=== PATIENT | female | born 1955 | race Caucasian/White ===

== ENCOUNTER 2017-03-20 09:30 | Inpatient (IN) | payer MEDICAID, OTHER ==
[~2017-03-20] VITALS: Ht 165.1 cm; Wt 158.0 kg
[2017-03-20 09:33] VITALS: Ht 165.1 cm; Wt 158.0 kg
--- NOTE | 2017-03-20 11:13 | RADRPT ---
PROCEDURE: XR Chest. CLINICAL INDICATION: Abdominal pain. TECHNIQUE: Single frontal view of the chest was obtained. COMPARISON: None FINDINGS: The soft tissues are generous. There are degenerative osteophytes in the thoracic spine. The heart is enlarged. The cardiomediastinal silhouette and hilar structures are normal. The pulmonary vascu lature is normal. There are vascular calcifications in the aortic arch. The lungs are clear. The c ostophrenic angles are normal. IMPRESSION: 1. Cardiomegaly with left ventricular enlargement. 2. Atherosclerosis of the aortic arch. 3. Spondylosis of the thoracic spine. RPTAT:AAJJ Physician Daniel Date Time Electronically viewed and signed by Physician Daniel on 03/20/2017 11:13 YAMILETH/
[2017-03-20 11:17] LABS: ADD UMIC YES; UR ASCORBIC ACID NEGATIVE (NEGATIVE); UR BILIRUBIN (Dip) NEGATIVE (NEGATIVE); UR BLOOD (Dip) 1+ mg/dL (NEGATIVE); UR CLARITY SLIGHTLY CLOUDY (CLEAR); UR COLOR YELLOW (YELLOW); UR GLUCOSE (Dip) NEGATIVE (NEGATIVE); UR KETONES (Dip) NEGATIVE (NEGATIVE); UR LEUKOCYTE ESTERASE (Dip) NEGATIVE Leu/ul (NEGATIVE); UR NITRITE (Dip) NEGATIVE (NEGATIVE); UR RBC 1 /HPF (0-5); UR SPECIFIC GRAVITY (Dip) 1.013 (1.003-1.030); UR SQUAMOUS EPITHELIAL CELL FEW /HPF (FEW); UR TOTAL PROTEIN (Dip) 1+ mg/dl (NEGATIVE); UR UROBILINOGEN (Dip) NEGATIVE (NEGATIVE)
[2017-03-20 11:41] LABS: ADD SCAN DIFF NO
[2017-03-20 11:43] LABS: ABNORMAL IP MESSAGE 1; HEMATOCRIT 26.1 % (37.0-47.0); HEMOGLOBIN 7.5 g/dl (12.0-16.0); MEAN CORPUSCULAR HEMOGLOBIN 23.6 pg (29.0-33.0); MEAN CORPUSCULAR HGB CONC 28.7 g/dl (32.0-37.0); MEAN CORPUSCULAR VOLUME 82.1 fl (82.0-101.0); PLATELET COUNT 109 10^3/UL (140-415); RED BLOOD COUNT 3.18 10^6/ul (4.20-5.40); RED CELL DISTRIBUTION WIDTH 21.1 % (11.5-14.5); WHITE BLOOD COUNT 2.6 10^3/ul (4.8-10.8)
[2017-03-20 12:09] LABS: ALBUMIN 3.1 g/dl (3.3-4.9); ALBUMIN/GLOBULIN RATIO 0.7; BILIRUBIN,INDIRECT 0.1 mg/dl (0-1.1); BILIRUBIN,TOTAL 0.1 mg/dl (0.2-1.3); CALCIUM 8.7 mg/dl (8.4-10.2); CREATININE 1.27 mg/dl (0.44-1.00); POTASSIUM 3.5 mmol/L (3.5-5.1); TOTAL PROTEIN 7.5 g/dl (6.1-8.1)
[2017-03-20 14:41] LABS: LYMPHOCYTES # 0.5 10^3/ul (0.8-2.9); MONOCYTE # 0.3 10^3/ul (0.3-0.9); NEUTROPHIL # 1.6 10^3/ul (1.6-7.5)
[2017-03-20] MEDS ORDERED: SOD CHLORIDE 0.9% 1,000 ML IV ONE (14:45)
[2017-03-20] MEDS ORDERED: ACETAMINOPHEN 650 MG SUPP PR PRN (15:00)
[2017-03-20] MEDS ORDERED: morphine 2 MG INJ IV PRN (15:00)
[2017-03-20] MEDS ORDERED: BISACODYL 10 MG SUPP PR PRN (15:00)
[2017-03-20] MEDS ORDERED: HYDROCODONE/APAP (5/325) TAB PO PRN ×2 (15:00)
[2017-03-20] MEDS ORDERED: ONDANSETRON 4 MG INJ IV PRN (15:00)
[2017-03-20] MEDS ORDERED: MAGNESIUM HYDROXIDE 30ML CUP PO PRN (15:00)
[2017-03-20] MEDS ORDERED: ACETAMINOPHEN 325 MG TAB PO PRN (15:00)
[2017-03-20] MEDS ORDERED: NACL 0.9% 3 ML SYG IV SCH (15:00)
[2017-03-20] MEDS ORDERED: DOCUSATE SODIUM 100 MG CAP PO PRN (15:00)
--- NOTE | 2017-03-20 15:38 | RADRPT ---
PROCEDURE: CT scan of the abdomen and pelvis without IV contrast. CLINICAL INDICATION: Fever, high blood pressure and generalized abdominal pain. TECHNIQUE: Thin section axial, coronal and sagittal images were performed through the abdomen and pelvis without contrast. Radiation Dose: CTDI: 28.9 and DLP: 1900 One or more of the following dose reduction techniques were used: - Automated exposure control. - Adjustment of the mA and/or kV according to patient size. Use of iterative reconstruction technique. COMPARISON: Chest x-ray 10/03/2016 06:18 a.m. FINDINGS: Soft tissues: The soft tissues are generous consistent with obesity.. Lungs and pleural spaces: The lungs are clear. No pleural effusion or pulmonary nodule is identifie d. Heart: Heart is enlarged. No pericardial effusion is identified. The liver, common bile duct and gallbladder: The liver has a nodular contour. The liver measures 15 .8 cm AP. The gallbladder and gallbladder wall are normal. Gastrointestinal: There is no evidence of a hiatal hernia. The stomach is unremarkable. The small bowel loops have a normal caliber. There is diastasis rectus. There is a midline umbilical hernia which contains only fat. The neck of the hernia measures 2.2 cm sagittal. Hernia measures up to 4 .6 cm in maximal length. No inguinal hernia is identified. There are diverticula in the descending colon. There are diverticula in the sigmoid colon. There is no convincing evidence of diverticulit is. There is no convincing evidence of appendicitis. Pancreas: Normal. The extrahepatic common bile duct is normal. Kidneys, bladder and adrenal glands : The adrenal glands are normal. There is no evidence of a demetrius d mass or hydronephrosis involving either kidney. No obstructing ureterolith, nephrolith or bladder stone is identified. There are phleboliths adjacent to the bladder. The urinary bladder is normal . Spleen: The spleen measures 16 cm AP which is enlarged. Lymph nodes: No enlarged inguinal, pelvic sidewall, retroperitoneal, mesenteric or periportal lymph nodes are identified. Reproductive system and pelvis : The uterus and ovaries are not visualized. Bony elements: There are degenerative osteophytes in the thoracic and lumbar spine. There is disk s pace narrowing and vacuum disk phenomenon at L3-4, L4-5 and L5-S1. There is no evidence of spondylo lysis or spondylolisthesis. The neural canal and nerve root foramina are well maintained except for moderate narrowing of the nerve root canals at L5-S1 due to dorsal spondylosis. Vasculature: There are vascular calcifications in the distal common iliac arteries. IMPRESSION: 1. Obesity with rectus diastasis and associated midline umbilical hernia containing only fat. This hernia measures up to 4.6 cm in long axis with the neck of the hernia measuring 2.2 cm sagittal. 2. Diverticulosis of the descending and sigmoid colon. No convincing evidence of diverticulitis or appendicitis. 3. Cardiomegaly. 4. Mild hepatomegaly. 6. Splenomegaly. The spleen measures 15.8 cm AP. 7. Status post hysterectomy and bilateral salpingo-oophorectomy. 8. Osteoarthritis of the thoracic and lumbosacral spine. RPTAT:AAJJ Physician Daniel Date Time Electronically viewed and signed by Physician Daniel on 03/20/2017 15:38 /
--- NOTE | 2017-03-20 15:52 | ERA ---
ER Documentation Chief Complaint Date/Time DATE: 03/20/17 TIME: 15:47 Chief Complaint FEVER AND HEADACHE X 1 WEEK HPI This 61-year-old female presents with fever for last week. She took Tylenol last night. She has no fever triage. She also has complaints of a bitemporal headache fatigue and nausea without vomiting, abdominal pain, diarrhea, urinary complaints, cough, sore throat. She has a history of hypertension. ROS All systems reviewed and are negative except as per history of present illness. Allergies Allergies: Coded Allergies: No Known Allergy (Unverified , 03/20/17) PMhx/Soc Hx Cardiac Disorders: Yes (htn; high cholesterol) Hx Alcohol Use: No Hx Substance Use: No Hx Tobacco Use: No Physical Exam Vitals Vital Signs Date Time Temp Pulse Resp B/P Pulse Ox O2 Delivery O2 Flow Rate FiO2 03/20/17 09:33 98.6 78 18 127/60 97 Physical Exam Const: [] Alert, morbidly obese, no apparent distress. Head: Atraumatic Eyes: Normal Conjunctiva ENT: Normal External Ears, Nose and Mouth. Neck: Full range of motion..~ No meningismus. Resp: Clear to auscultation bilaterally Cardio: Regular rate and rhythm, no murmurs Abd: Soft, non tender, non distended. Normal bowel sounds Skin: No petechiae or rashes Back: No midline or flank tenderness Ext: No cyanosis, appropriate. Patient is changes of venous stasis chronic appearing edema of the bilateral lower extremities. No calf swelling or Homans sign per Neur: Awake and alert Psych: Normal Mood and Affect Result Diagram: 03/20/17 1130 03/20/17 1130 Results 24 hrs Laboratory Tests Test 03/20/17 10:50 03/20/17 11:30 Urine Color YELLOW Urine Clarity SLIGHTLY CLOUDY Urine pH 5.0 Urine Specific [place] 1.013 Urine Ketones NEGATIVEmg/dL Urine Nitrite NEGATIVEmg/dL Urine Bilirubin NEGATIVEmg/dL Urine Urobilinogen NEGATIVEmg/dL Urine Leukocyte Esterase NEGATIVELeu/ul Urine Microscopic RBC 1/HPF Urine Microscopic WBC 7/HPF Urine Squamous Epithelial Cells FEW/HPF Urine Hemoglobin 1+mg/dL Urine Glucose NEGATIVEmg/dL Urine Total Protein 1+mg/dl White Blood Count 2.610^3/ul Red Blood Count 3.1810^6/ul Hemoglobin 7.5g/dl Hematocrit 26.1% Mean Corpuscular Volume 82.1fl Mean Corpuscular Hemoglobin 23.6pg Mean Corpuscular Hemoglobin Concent 28.7g/dl Red Cell Distribution Width 21.1% Platelet Count 46076^3/UL Mean Platelet Volume 12.0fl Neutrophils % 63.0% Band Neutrophils % 3.0% Lymphocytes % 20.0% Monocytes % 13.0% Eosinophils % 1.0% Basophils % % Neutrophils # 1.610^3/ul Lymphocytes # 0.510^3/ul Monocytes # 0.310^3/ul Eosinophils # 0.010^3/ul Basophils # 10^3/ul Nucleated Red Blood Cells # 10^3/ul Sodium Level 142mmol/L Potassium Level 3.5mmol/L Chloride Level 102mmol/L Carbon Dioxide Level 23mmol/L Anion Gap 21 Blood Urea Nitrogen 36mg/dl Creatinine 1.27mg/dl Glucose Level 93mg/dl Calcium Level 8.7mg/dl Total Bilirubin 0.1mg/dl Direct Bilirubin 0.00mg/dl Indirect Bilirubin 0.1mg/dl Aspartate Amino Transf (AST/SGOT) 74IU/L Alanine Aminotransferase (ALT/SGPT) 51IU/L Alkaline Phosphatase 175IU/L Total Protein 7.5g/dl Albumin 3.1g/dl Globulin 4.40g/dl Albumin/Globulin Ratio 0.70 Lipase 302U/L Current Medications Medications (Trade) Dose Ordered Sig/Neha Route PRN Reason Start Time Stop Time Status Last Admin Dose Admin IV Flush (NS 3 ml) 3 ml PER PROTOCOL IV 03/20/17 15:00 Ondansetron HCl (Zofran Inj) 4 mg Q6H PRN IV NAUSEA AND/OR VOMITING 03/20/17 15:00 Acetaminophen (Tylenol Tab) 650 mg Q6H PRN PO PAIN LEVEL 1-3 OR FEVER 03/20/17 15:00 Acetaminophen (Tylenol Supp) 650 mg Q6H PRN [place] PAIN LEVEL 1-3 OR FEVER 03/20/17 15:00 Acetaminophen/ Hydrocodone Bitart ([place] (5/325)) 1 tab Q6H PRN PO MODERATE PAIN LEVEL 4-6 03/20/17 15:00 Acetaminophen/ Hydrocodone Bitart ([place] (5/325)) 2 tab Q6H PRN PO SEVERE PAIN LEVEL 7-10 03/20/17 15:00 Morphine Sulfate (morphine) 2 mg Q4H PRN IV SEVERE PAIN LEVEL 7-10 03/20/17 15:00 Docusate Sodium (Colace) 100 mg Q12H PRN PO CONSTIPATION 03/20/17 15:00 Magnesium Hydroxide (Milk Of Mag) 30 ml DAILY PRN PO CONSTIPATION 03/20/17 15:00 Bisacodyl (Dulcolax Supp) 10 mg DAILY PRN [place] CONSTIPATION 03/20/17 15:00 Pantoprazole 40 mg 40 mg DAILY@06 IV 03/21/17 06:00 Sodium Chloride (NS) 1,000 ml @ 0 mls/hr Q0M ONCE IV 03/20/17 14:45 03/20/17 14:46 DC 03/20/17 15:00 Procedures/MDM Patient presents with febrile illness at home, fatigue, nausea headache of uncertain etiology. CBC shows pancytopenia with a WBC of 2.6, hemoglobin 7.5 and platelets of 105. CMP shows elevated BUN and creatinine. Lipase slightly elevated. Urine shows no 7 WBCs few RBCs but no leukocyte Estrace, nitrites, glucose. Chest X-ray 1V Interpreted by me: Soft Tissue: No acute abnormalities Bones: No acute abnormalities Mediastinum/Cardiac Silhouette/Lungs: [No acute abnormalities]. Impression have normal 1 view chest x-ray CT abdomen and pelvis shows IMPRESSION: 1. Obesity with rectus diastasis and associated midline umbilical hernia containing only fat. This hernia measures up to 4.6 cm in long axis with the neck of the hernia measuring 2.2 cm sagittal. 2. Diverticulosis of the descending and sigmoid colon. No convincing evidence of diverticulitis or appendicitis. 3. Cardiomegaly. 4. Mild hepatomegaly. 6. Splenomegaly. The spleen measures 15.8 cm AP. 7. Status post hysterectomy and bilateral salpingo-oophorectomy. 8. Osteoarthritis of the thoracic and lumbosacral spine. Patient presents with febrile illness without active fever and signs of pancytopenia of uncertain etiology. There is no current signs or symptoms of sepsis, chest pain, shortness of breath, acute abdomen. Differential includes TTP, neoplasm, blood dyscrasia, hemolysis. There is no signs or symptoms to suggest pulmonary embolism or DVT. Patient will be admitted for further evaluation and treatment. Departure Diagnosis: Primary Impression: Acute renal failure Qualified Code: N17.9 - Acute renal failure, unspecified acute renal failure type Additional Impression: Pancytopenia Condition: Stable TERESA VALENCIA MD Mar 20, 2017 15:52
--- NOTE | 2017-03-20 15:55 | HP ---
Date/Time of Note Date/Time of Note DATE: 03/20/17 TIME: 15:48 Assessment/Plan VTE Prophylaxis VTE Prophylaxis Intervention: SCD's Assessment/Plan Chief Complaint/Hosp Course Impression and plan 1. Reported fevers and generalized weakness. Patient noted to be pancytopenic. Will monitor CBC and transfuse blood products as needed. Will get credit checker to follow. Follow-up on lloyd cultures. 2. Pancytopenia. Etiology unknown at this time. Will get oncologist follow. 3. Reported essential hypertension.Remained stable at present. Will provide with antihypertensives as needed. 4. Acute kidney injury. Will provide with IV hydration for now. Will get notereader pending clinical course. 5. Morbid obesity. Weight reduction was advised. Admission process 40 minutes Discussed plan of care with Problems: HPI/ROS Admit Date/Time Admit Date/Time Medical/surgical history 1. Hypertension 2. Reported bladder surgery 3. Hysterectomy 4. Morbid obesity Hx of Present Illness This is a 61-year-old female with only reported past medical history of hypertension who came to [facility] due to reports of subjective fevers as well as generalized weakness that she reports started on Thursday, March 15, 2017. She does not know how high her fever was but reports feeling weak at that time. She also had some reported diarrhea which she did report resolved on February. She reported that she only taking Tylenol for fevers and slowly got better but today she reported she got worse. She also had some reported shortness of breath on exertion as well as some dysuria. She subsequently went to [facility] for further evaluation. She did have a chest x-ray that did show cardiomegaly with left ventricular enlargement. She also had an abdominal pelvic CT scan that did show her to have obesity with rectus diastases and associated midline umbilical hernia containing only fat and hernia measuring up to 4.6 cm in the long axis of the neck of the hernia measuring 2.2 cm sagittal. There is also seen diverticulosis without evidence of diverticulitis. She was noted on blood work to be pancytopenic with white blood cells was 2.6 and hemoglobin of 7.5 and hematocrit 26.1. She denies any history of anemia or leukemia. Additionally she was noted to have acute renal injury with creatinine of 1.27 and BUN of 36. Lipase is also seen slightly elevated at 302. She remained afebrile on visit. We will evaluate her for the aformentiond issues ROS 12 point review of systems obtained and entirely negative except that mentioned in the history present illness Exam/Review of Systems Vital Signs Vitals Vital Signs Date Time Temp Pulse Resp B/P Pulse Ox O2 Delivery O2 Flow Rate FiO2 03/20/17 09:33 98.6 78 18 127/60 97 Exam Constitutional: alert, oriented, other (Morbidly obese) Psych: nl mood/affect Neck: No jvd Respiratory: clear to auscultation Cardiovascular: nl pulses, regular rate and rhythm Gastrointestinal: soft, tender (Minimally on left upper abdominal quadrant) Musculoskeletal: No swelling Neurological: RAILROAD YARD WORKER II-XII intact, nl mental status, nl speech Labs Result Diagram: 03/20/17 1130 03/20/17 1130 Medications Medications Current Medications Ondansetron HCl (Zofran Inj) 4 mg Q6H PRN IV NAUSEA AND/OR VOMITING; Start at 15:00 Acetaminophen (Tylenol Tab) 650 mg Q6H PRN PO PAIN LEVEL 1-3 OR FEVER; Start at 15:00 Acetaminophen (Tylenol Supp) 650 mg Q6H PRN [place] PAIN LEVEL 1-3 OR FEVER; Start 03/20/17 at 15:00 Acetaminophen/ Hydrocodone Bitart ([place] (5/325)) 1 tab Q6H PRN PO MODERATE PAIN LEVEL 4-6; Start 03/20/17 at 15:00 Acetaminophen/ Hydrocodone Bitart ([place] (5/325)) 2 tab Q6H PRN PO SEVERE PAIN LEVEL 7-10; Start 03/20/17 at 15:00 Morphine Sulfate (morphine) 2 mg Q4H PRN IV SEVERE PAIN LEVEL 7-10; Start 03/20 at 15:00 Docusate Sodium (Colace) 100 mg Q12H PRN PO CONSTIPATION; Start 03/20/17 at 15: 00 Magnesium Hydroxide (Milk Of Mag) 30 ml DAILY PRN PO CONSTIPATION; Start at 15:00 Bisacodyl (Dulcolax Supp) 10 mg DAILY PRN [place] CONSTIPATION; Start 03/20/17 at 15 :00 Pantoprazole (Protonix Iv) 40 mg DAILY@06 IV ; Start 03/21/17 at 06:00 DORI MENENDEZ Mar 20, 2017 15:55
[2017-03-20 15:57] VITALS: TEMP 97.7
[2017-03-20 16:22] LABS: RETICULOCYTE COUNT % 2.5 % (0.5-1.5)
[2017-03-20 16:26] LABS: INR 1.06; PROTIME 13.8 Sec (12.2-14.2); PT RATIO 1.1
[2017-03-20 16:47] LABS: PARTIAL THROMBOPLASTIN TIME 41.6 Sec (25.0-35.0)
[2017-03-20 17:05] VITALS: BP 125/81; PULSE 65; RESP 18
--- NOTE | 2017-03-20 17:58 | EN ---
Date/Time of Note Date/Time of Note DATE: 03/20/17 TIME: 17:46 Event Note Medicine Medicine Event Note Complete hematology consultation dictated. . Pt is a 61 y/o female admitted with c/o weakness and fatigue. Possible fevers but has not taken temp and not febrile in hospital. Found to be pancytopenic. Pt also has mildly abn LFT's and CT scan demonstrated a nodular liver which is sl enlarged and splenomegaly (16 cm). Pt also has mild hyperglobulinemia and prolonged PTT but nl PT. Feel pt's pancytopenia is due to a combination of 2 problems. Feel that pt anemia is due to iron deficiency. May be on basis of portal hypertension and variceal bleeding or gastropathy. Leukopenia and thrombocytopenia are likely due to splenic sequestration. Doubt myeloproliferative disorder as cause of splenomegaly. Pt has elevated globulin but doubt a immunoproliferative process but may have a collagen vascular disorder as cause of prolonged PTT with a possible lupus anticoagulant. Have requested iron studies, ferritin, B12 and folate, SPEP, IEP, QIG's, Hepatitis serologies, BRIAN, ELIU-2, LDH, uric acid and 50/50 PTT. COSNTANCE MARTINEZ MD Mar 20, 2017 17:57
--- NOTE | 2017-03-20 18:25 | CONS ---
Date/Time of Note Date/Time of Note DATE: 03/20/17 TIME: 18:17 Assessment/Plan Assessment/Plan Additional Assessment/Plan 61 yo Female with 1) Fever and Generalized Weakness 2) Pancytopenia 3) Abnormal UA with ? NATHALIA vs CKD 4) Chronic HTN 5) Obesity At this time it is unclear if we have NATHALIA vs CKD, Unlikely ATN As patient had hx of Diarrhea please consider Pre-Renal state and would advise IVFs at this UA reviewed, F/U Cultures Dr Fox has seen patient and has ordered Protein electropheresis. MM F/u results, appreciate Hem/Onc consultation Please hold ARB Losartan and HCTZ at this time. Thank you for the opportunity to participate in the care of Ms Morrow Dr Miller is rounding over weekend and I will sign out to him. Consultation Date/Type/Reason Date of Consultation: Mar 20, 2017 Type of Consultation: Renal Reason for Consultation NATHALIA Referring Provider: DORI MENENDEZ Hx of Present Illness 61-year-old female with chronic history of hypertension greater than 10 years who presented to [facility] [place] with oriana as well as generalized weakness that started on Thursday, March 15, 2017. She reported diarrhea which she did report resolved on , March 19, 2017. She also had some reported shortness of breath on exertion as well as some dysuria. She was noted on blood work to be pancytopenia with white blood cells was 2.6 and hemoglobin of 7.5 and hematocrit 26.1. She denies any history of anemia or leukemia. Additionally she was noted to have acute renal injury with creatinine of 1.27 and BUN of 36 and denies history of NATHALIA or CKD in past. Nephrology consulted for NATHALIA vs CKD. Constitutional: No requiring O2 Cardiovascular: No chest pain Genitourinary: dysuria, No hematuria Psychological: nl mood/affect Past Medical History Medical History: hypertension Past Surgical History Past Surgical Hx: other (SHANNON BSO) Family History Significant Family History: no pertinent family hx Social History Alcohol Use: none Smoking Status: Never smoker Drug Use: none Exam/Review of Systems Vital Signs Vitals Vital Signs Date Time Temp Pulse Resp B/P Pulse Ox O2 Delivery O2 Flow Rate FiO2 03/20/17 17:05 97.6 65 18 125/81 100 Room Air Exam Constitutional: alert, obese, oriented Psych: No anxiety Head: atraumatic, normocephalic Eyes: EOMI, PERRL, nl conjunctiva, No icteric ENMT: mucosa pink and moist, nl lips & teeth Neck: supple, No jvd Respiratory: clear to auscultation, No diminished breath sounds, No labored breathing Cardiovascular: regular rate and rhythm, No edema Gastrointestinal: non-tender, soft, No rebound or guarding, No tender Extremities: No pitting pedal edema 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, nl mental status, No confused, No focal weakness, No lethargic Skin: nl turgor, No diaphoresis, No rash or lesions Results Result Diagram: 03/20/17 1130 03/20/17 1130 Results 24 hrs Laboratory Tests Test 03/20/17 10:50 03/20/17 11:30 Urine Color YELLOW Urine Clarity SLIGHTLY CLOUDY A Urine pH 5.0 Urine Specific [place] 1.013 Urine Ketones NEGATIVE Urine Nitrite NEGATIVE Urine Bilirubin NEGATIVE Urine Urobilinogen NEGATIVE Urine Leukocyte Esterase NEGATIVE Urine Microscopic RBC 1 Urine Microscopic WBC 7 H Urine Squamous Epithelial Cells FEW Urine Hemoglobin 1+ H Urine Glucose NEGATIVE Urine Total Protein 1+ H White Blood Count 2.6 L Red Blood Count 3.18 L Hemoglobin 7.5 L Hematocrit 26.1 L Mean Corpuscular Volume 82.1 Mean Corpuscular Hemoglobin 23.6 L Mean Corpuscular Hemoglobin Concent 28.7 L Red Cell Distribution Width 21.1 H Platelet Count 109 L Mean Platelet Volume 12.0 H Neutrophils % 63.0 Band Neutrophils % 3.0 Lymphocytes % 20.0 Monocytes % 13.0 H Eosinophils % 1.0 Basophils % Neutrophils # 1.6 Lymphocytes # 0.5 L Monocytes # 0.3 Eosinophils # 0.0 Basophils # Nucleated Red Blood Cells # Absolute Reticulocyte Count 0.080 Percent Reticulocyte Count 2.5 H Prothrombin Time 13.8 Prothrombin Time Ratio 1.1 INR International Normalized Ratio 1.06 Activated Partial Thromboplast Time 41.6 H Sodium Level 142 Potassium Level 3.5 Chloride Level 102 Carbon Dioxide Level 23 Anion Gap 21 H Blood Urea Nitrogen 36 H Creatinine 1.27 H Glucose Level 93 Calcium Level 8.7 Total Bilirubin 0.1 L Direct Bilirubin 0.00 Indirect Bilirubin 0.1 Aspartate Amino Transf (AST/SGOT) 74 H Alanine Aminotransferase (ALT/SGPT) 51 Alkaline Phosphatase 175 H Total Protein 7.5 Albumin 3.1 L Globulin 4.40 H Albumin/Globulin Ratio 0.70 Lipase 302 H Medications Medications Current Medications Ondansetron HCl (Zofran Inj) 4 mg Q6H PRN IV NAUSEA AND/OR VOMITING; Start at 15:00 Acetaminophen (Tylenol Tab) 650 mg Q6H PRN PO PAIN LEVEL 1-3 OR FEVER; Start at 15:00 Acetaminophen (Tylenol Supp) 650 mg Q6H PRN [place] PAIN LEVEL 1-3 OR FEVER; Start 03/20/17 at 15:00 Acetaminophen/ Hydrocodone Bitart ([place] (5/325)) 1 tab Q6H PRN PO MODERATE PAIN LEVEL 4-6; Start 03/20/17 at 15:00 Acetaminophen/ Hydrocodone Bitart ([place] (5/325)) 2 tab Q6H PRN PO SEVERE PAIN LEVEL 7-10; Start 03/20/17 at 15:00 Morphine Sulfate (morphine) 2 mg Q4H PRN IV SEVERE PAIN LEVEL 7-10; Start 03/20 at 15:00 Docusate Sodium (Colace) 100 mg Q12H PRN PO CONSTIPATION; Start 03/20/17 at 15: 00 Magnesium Hydroxide (Milk Of Mag) 30 ml DAILY PRN PO CONSTIPATION; Start at 15:00 Bisacodyl (Dulcolax Supp) 10 mg DAILY PRN [place] CONSTIPATION; Start 03/20/17 at 15 :00 Pantoprazole (Protonix Iv) 40 mg DAILY@06 IV ; Start 03/21/17 at 06:[address] Renal Kidneys, bladder and adrenal glands : The adrenal glands are normal. There is no evidence of a solid mass or hydronephrosis involving either kidney. No obstructing ureterolith, nephrolith or bladder stone is identified. There are phleboliths adjacent to the bladder. The urinary bladder is normal. KAYDEN MCLAUGHLIN MD Mar 20, 2017 18:25
[2017-03-20 19:25] VITALS: BP 125/60; RESP 18
[2017-03-20 20:23] LABS: PARTIAL THROMBOPLASTIN TIME 37.7 Sec (25.0-35.0)
[2017-03-20 20:23] LABS: LACTATE DEHYDROGENASE 554 IU/L (313-618); URIC ACID 6.6 mg/dl (3.1-7.9)
[2017-03-20 21:04] LABS: FERRITIN 37.1 ng/ml (11.1-264.0)
[2017-03-20 21:17] LABS: HEPATITIS B CORE ANTIBODY NEGATIVE (NEGATIVE)
[2017-03-20] MEDS ORDERED: ASPI-664 PO (21:18)
[2017-03-20 21:40] LABS: IMMUNOGLOBULIN G 1741 mg/dl (700-1600); IMMUNOGLOBULIN M 75 mg/dl (40-230)
[2017-03-20 22:04] LABS: IMMUNOGLOBULIN A 864 mg/dl (70-400)
[2017-03-20 22:30] LABS: IRON 34 ug/dl (35-150)
[2017-03-20 22:38] LABS: FOLATE 16.1 ng/ml (2.8-20.0)
[2017-03-20 22:39] LABS: TOTAL IRON BINDING CAPACITY 333 ug/dl (241-421)
[2017-03-21 02:00] VITALS: BP 126/70; PULSE 63; RESP 18
[2017-03-21 06:08] LABS: ABNORMAL IP MESSAGE 1; BASOPHILS % 0.4 % (0.0-2.0); EOSINOPHILS % 1.4 % (0.0-7.0); HEMATOCRIT 24.4 % (37.0-47.0); LYMPHOCYTES % 34.4 % (15.0-51.0); MEAN CORPUSCULAR HEMOGLOBIN 23.5 pg (29.0-33.0); MEAN CORPUSCULAR HGB CONC 28.7 g/dl (32.0-37.0); MEAN CORPUSCULAR VOLUME 81.9 fl (82.0-101.0); MEAN PLATELET VOLUME 11.8 fl (7.4-10.4); MONOCYTE # 0.4 10^3/ul (0.3-0.9); MONOCYTES % 13.8 % (0.0-11.0); NEUTROPHIL # 1.4 10^3/ul (1.6-7.5); NEUTROPHILS % 49.3 % (39.0-77.0); PLATELET COUNT 110 10^3/UL (140-415); RED BLOOD COUNT 2.98 10^6/ul (4.20-5.40); RED CELL DISTRIBUTION WIDTH 21.2 % (11.5-14.5); WHITE BLOOD COUNT 2.8 10^3/ul (4.8-10.8)
[2017-03-21 06:26] LABS: POSITIVE DIFF @See below
[2017-03-21] MEDS: PANTOPRAZOLE 40 MG INJ IV SCH (06:41)
[2017-03-21 06:50] LABS: CALCIUM 8.2 mg/dl (8.4-10.2); CREATININE 0.98 mg/dl (0.44-1.00); POTASSIUM 3.3 mmol/L (3.5-5.1)
[2017-03-21 06:52] LABS: ALBUMIN/GLOBULIN RATIO 0.75; CALCIUM 8.2 mg/dl (8.4-10.2); CHOL/HDL RATIO 6.4 RATIO; CREATININE 0.98 mg/dl (0.44-1.00); MAGNESIUM 1.7 mg/dl (1.7-2.5); PHOSPHORUS 4.2 mg/dl (2.5-4.9); POTASSIUM 3.3 mmol/L (3.5-5.1)
[2017-03-21 07:56] VITALS: BP 113/58; RESP 16
[2017-03-21 08:02] LABS: THYROID STIMULATING HORMONE 1.37 MIU/L (0.465-4.680)
--- NOTE | 2017-03-21 09:00 | PN ---
Date/Time of Note Date/Time of Note DATE: 03/21/17 TIME: 08:54 Assessment/Plan VTE Prophylaxis VTE Prophylaxis Intervention: SCD's Lines/Catheters IV [facility]ter Type (from [facility] [place] Urinary Cath still in place: No Assessment/Plan Chief Complaint/Hosp Course weakness and SOB. ? fevers Problems: Assessment/Plan Pt is iron deficient. Will give parenteral iron. Pt should have GI evaluation in order to determine source of blood/iron loss. Subjective 24 Hr Interval Summary Free Text/Dictation Pt states that she is feeling much better. No new complaints this AM. Exam/Review of Systems Vital Signs Vitals Vital Signs Date Time Temp Pulse Resp B/P Pulse Ox O2 Delivery O2 Flow Rate FiO2 03/21/17 07:56 98.1 70 16 113/58 98 03/21/17 02:00 Room Air Intake and Output 03/20/17 03/20/17 03/21/17 15:00 23:00 07:00 Intake Total 1000 ml 720 ml Output Total 800 ml Balance 1000 ml -80 ml Exam Constitutional: alert, obese, oriented, well developed Head: atraumatic, normocephalic Eyes: EOMI, PERRL, nl conjunctiva, nl lids, nl sclera ENMT: other (pale mucosa) Neck: non-tender, supple Respiratory: clear to auscultation, normal air movement Cardiovascular: nl pulses, regular rate and rhythm Gastrointestinal: non-tender, other (Markedly obese. Unable to appreciate organ size. There is tenderness on palpation of RUQ.), soft Musculoskeletal: nl extremities to inspection, nl gait and stance Extremities: normal pulses, other (Stasis changes and pigmentation of Rt pretibial area. No palpable cords or Kathe's sign.) Results Result Diagram: 03/21/17 0527 03/21/17 0527 Results 24 hrs Laboratory Tests Test 03/20/17 10:50 03/20/17 11:30 03/20/17 19:14 03/20/17 19:23 Urine Color YELLOW Urine Clarity SLIGHTLY CLOUDY A Urine pH 5.0 Urine Specific [place] 1.013 Urine Ketones NEGATIVE Urine Nitrite NEGATIVE Urine Bilirubin NEGATIVE Urine Urobilinogen NEGATIVE Urine Leukocyte Esterase NEGATIVE Urine Microscopic RBC 1 Urine Microscopic WBC 7 H Urine Squamous Epithelial Cells FEW Urine Hemoglobin 1+ H Urine Glucose NEGATIVE Urine Total Protein 1+ H White Blood Count 2.6 L Red Blood Count 3.18 L Hemoglobin 7.5 L Hematocrit 26.1 L Mean Corpuscular Volume 82.1 Mean Corpuscular Hemoglobin 23.6 L Mean Corpuscular Hemoglobin Concent 28.7 L Red Cell Distribution Width 21.1 H Platelet Count 109 L Mean Platelet Volume 12.0 H Neutrophils % 63.0 Band Neutrophils % 3.0 Lymphocytes % 20.0 Monocytes % 13.0 H Eosinophils % 1.0 Basophils % Neutrophils # 1.6 Lymphocytes # 0.5 L Monocytes # 0.3 Eosinophils # 0.0 Basophils # Nucleated Red Blood Cells # Absolute Reticulocyte Count 0.080 Percent Reticulocyte Count 2.5 H Prothrombin Time 13.8 Prothrombin Time Ratio 1.1 INR International Normalized Ratio 1.06 Activated Partial Thromboplast Time 41.6 H Sodium Level 142 Potassium Level 3.5 Chloride Level 102 Carbon Dioxide Level 23 Anion Gap 21 H Blood Urea Nitrogen 36 H Creatinine 1.27 H Glucose Level 93 Calcium Level 8.7 Total Bilirubin 0.1 L Direct Bilirubin 0.00 Indirect Bilirubin 0.1 Aspartate Amino Transf (AST/SGOT) 74 H Alanine Aminotransferase (ALT/SGPT) 51 Alkaline Phosphatase 175 H Total Protein 7.5 Albumin 3.1 L Globulin 4.40 H Albumin/Globulin Ratio 0.70 Lipase 302 H Iron Level 34 L Total Iron Binding Capacity 333 Percent Iron Saturation 10 L Uric Acid 6.6 Ferritin 37.1 Lactate Dehydrogenase 554 Vitamin B12 Level > 1000 H Folate 16.1 Immunoglobulin A 864 H Immunoglobulin G 1741 H Immunoglobulin M 75 Hepatitis B Surface Antigen NEGATIVE Hepatitis B Core Total Antibody NEGATIVE Hepatitis C Antibody NEGATIVE Test 03/20/17 19:35 03/21/17 05:27 Activated Partial Thromboplast Time 37.7 H Mix PTT Normal Plasma Immediate Hepatitis B Surface Antibody POSITIVE H White Blood Count 2.8 L Red Blood Count 2.98 L Hemoglobin 7.0 L Hematocrit 24.4 L Mean Corpuscular Volume 81.9 L Mean Corpuscular Hemoglobin 23.5 L Mean Corpuscular Hemoglobin Concent 28.7 L Red Cell Distribution Width 21.2 H Platelet Count 110 L Mean Platelet Volume 11.8 H Neutrophils % 49.3 Lymphocytes % 34.4 Monocytes % 13.8 H Eosinophils % 1.4 Basophils % 0.4 Nucleated Red Blood Cells % 0.0 Neutrophils # 1.4 L Lymphocytes # 1.0 Monocytes # 0.4 Eosinophils # 0.0 Basophils # 0.0 Nucleated Red Blood Cells # 0.0 Sodium Level 143 Potassium Level 3.3 L Chloride Level 106 Carbon Dioxide Level 23 Anion Gap 17 H Blood Urea Nitrogen 27 H Creatinine 0.98 Glucose Level 93 Hemoglobin A1c 5.2 Calcium Level 8.2 L Phosphorus Level 4.2 Magnesium Level 1.7 Total Bilirubin 0.0 L Direct Bilirubin 0.00 Indirect Bilirubin 0.0 Aspartate Amino Transf (AST/SGOT) 78 H Alanine Aminotransferase (ALT/SGPT) 46 Alkaline Phosphatase 183 H Total Protein 7.0 Albumin 3.0 L Globulin 4.00 H Albumin/Globulin Ratio 0.75 Triglycerides Level 180 H Cholesterol Level 77 L LDL Cholesterol, Calculated 29 HDL Cholesterol 12 L Cholesterol/HDL Ratio 6.4 Thyroid Stimulating Hormone (TSH) 1.370 Free Thyroxine Index 4.54 H Thyroxine (T4) 12.6 H Triiodothyronine (T3) Uptake 36.0 Medications Medications Current Medications Ondansetron HCl (Zofran Inj) 4 mg Q6H PRN IV NAUSEA AND/OR VOMITING; Start at 15:00 Acetaminophen (Tylenol Tab) 650 mg Q6H PRN PO PAIN LEVEL 1-3 OR FEVER; Start at 15:00 Acetaminophen (Tylenol Supp) 650 mg Q6H PRN [place] PAIN LEVEL 1-3 OR FEVER; Start 03/20/17 at 15:00 Acetaminophen/ Hydrocodone Bitart ([place] (5/325)) 1 tab Q6H PRN PO MODERATE PAIN LEVEL 4-6; Start 03/20/17 at 15:00 Acetaminophen/ Hydrocodone Bitart ([place] (5/325)) 2 tab Q6H PRN PO SEVERE PAIN LEVEL 7-10; Start 03/20/17 at 15:00 Morphine Sulfate (morphine) 2 mg Q4H PRN IV SEVERE PAIN LEVEL 7-10; Start 03/20 at 15:00 Docusate Sodium (Colace) 100 mg Q12H PRN PO CONSTIPATION; Start 03/20/17 at 15: 00 Magnesium Hydroxide (Milk Of Mag) 30 ml DAILY PRN PO CONSTIPATION; Start at 15:00 Bisacodyl (Dulcolax Supp) 10 mg DAILY PRN [place] CONSTIPATION; Start 03/20/17 at 15 :00 Pantoprazole 40 mg 40 mg DAILY@06 IV Last administered on 03/21/17t 06:41; Admin Dose 40 MG; Start 03/21/17 at 06:00 Potassium Chloride/Sodium Chloride (KCl/1/2 NS) 1,005 ml @ 100 mls/hr Q10H3M IV ; Start 03/21/17 at 06:30 Epoetin Raúl (Epogen (Oncology)) 8,000 units TuThSa@17 SC ; Start 03/21/17 at 17 :00 CONSTANCE MARTINEZ MD Mar 21, 2017 09:00
[2017-03-21] MEDS: POTASSIUM CHLORIDE 10 MEQ in SOD CHLORIDE 0.45% 1,000 ML IV SCH ×3 (09:45→21:15)
--- NOTE | 2017-03-21 10:06 | CONS ---
DATE OF ADMISSION: 03/20/2017 DATE OF CONSULTATION: 03/20/2017 REASON FOR CONSULTATION: Pancytopenia. Dear Mr. Gilliam: Thank you for asking me to see this very pleasant patient in hematologic consultation. HISTORY OF PRESENT ILLNESS: Ms. Morrow is a 61-year-old female who was admitted to [facility] after presenting to the emergency room with 4 or 5 days of what she felt was fever. She has also been complaining of increasing weakness as well as dyspnea on exertion. She may have had some minimal chest pain. The patient states that she felt that she had a fever but did not actually have shaking chills. There were no night sweats. Patient has not actually taken her temperature. Patient did have some mild nausea, an episode of vomiting. She has not had any other indigestion or symptoms of reflux. She also has had 1 or 2 episodes of diarrhea. There has been no melena or hematochezia. On presentation to the emergency room, the patient had a white count of 2600 with an absolute neutrophil count of 1600, absolute lymphocyte count of 500, red blood cell count of 3.1 million, hemoglobin of 7.5, hematocrit of 26.1, MCV 82.1, MCH 23.6, MCHC 28.7, RDW is 21.1, platelet count 109,000 and MVP is 12. Pro time is 13.8 seconds with an INR of 1.06 and PTT is 41.6 seconds. CMP is normal except for a BUN of 36, creatinine 1.27. AST is 74, ALT 51, alkaline phosphatase 175, total protein 7.5, albumin 3.1, globulin 4.4 and lipase 304. The patient has had a chest x-ray which demonstrates cardiomegaly with left ventricular enlargement. Also a CT scan of the abdomen and pelvis revealed a liver which had a nodular contour and measured 15.8 cm anterior to posterior. The spleen was 16 cm. There was no intra-abdominal lymphadenopathy. There was a midline umbilical hernia noted. PAST MEDICAL HISTORY: Includes a history of hypertension. Patient, however, states she has not taken her medications now in 1 year. There is no history of diabetes. No history of heart disease. Patient states she has been told in the past of "fatty liver." She had never previously been told of any hematologic abnormalities. PAST SURGICAL HISTORY: Have included some type of bladder suspension done several years ago. MEDICATION: Included multiple antihypertensive medications. The patient, as noted, has not been taking anything for a year. ALLERGIES: SHE DENIES ANY ALLERGIES. GYNECOLOGIC HISTORY: Last menstrual period was 3 or 4 years ago. She has never taken any hormone replacement therapy. She is 4, para 4, AB0. It is unclear if the patient has ever had a mammogram, apparently not at least for 14 years. FAMILY HISTORY: Unremarkable. SOCIAL HISTORY: The patient was born in [facility]. She has been in the [place] for 14 years. She has not knowingly been exposed to any industrial toxins or ionizing radiation. She does not smoke or use alcoholic beverages. PHYSICAL EXAMINATION: GENERAL APPEARANCE: At this time, reveals a well-developed, but obese female, who is in no acute distress. VITAL SIGNS: Temperature 97.6, pulse 65 per minute and regular, respirations 18, blood pressure 125/81, and pulse oximetry is 100 percent on room air. SKIN: No ecchymosis. No petechiae or rashes. There are stasis changes noted in the right pretibial area with hyperpigmentation. HEENT: Normocephalic. No evidence of trauma. The pupils are equal, round, react to light and accommodation. Sclerae not icteric. Oral mucosa is moist without lesions. Tongue is well papillated. There is no gingival hyperplasia. No hypertrophy of Waldeyer's ring. No mucosal telangiectasias. The mucosa is pale. NECK: Supple. No jugular venous distension or thyroid enlargement. No carotid bruits. CHEST: Clear to auscultation and percussion. No rhonchi, wheezes, rales or rubs. No pain on percussion of the spine, sternum, clavicles or ribs. BREASTS: Symmetrical. No masses, skin retraction, nipple inversion. CARDIAC: Regular sinus rhythm. No S3, S4 or murmurs. ABDOMEN: Obese. Unable to appreciate any organomegaly or ascites. EXTREMITIES: Good range of motion. No clubbing or cyanosis. There are no palpable cords or Homans sign. As noted, there are stasis changes with fibrosis and increased pigmentation in the right pretibial area. Left pretibial area is normal. NEUROLOGIC: Normal. LABORATORY: A peripheral smear has been reviewed. There is some hyperchromasia and microcytosis. Also increased Rouleaux formation. White blood cells are decreased in number but there are no abnormalities in morphology. There are no immature granulocytes. No hypersegmented polys. No nucleated red blood cells. The lymphocytes appear normal. Platelets are mildly decreased in number but there are large platelet form seen. DISCUSSION: This patient presents with pancytopenia, which I feel are basically on the basis of 2 different processes. The patient is anemic and I do feel that she has iron deficiency. Although, the patient is not significantly microcytic, there certainly is hyperchromasia and some of the microcytosis may be masked by some underlying liver disease. RDW 21.1 is also consistent with iron deficiency. As noted, the patient does have a somewhat nodular-appearing liver and does have splenomegaly. This suggests the possibility of some portal hypertension. The patient has not noted any melena or hematochezia but I do feel there is a possibility of bleeding due to varices or gastropathy. We will obtain stools for occult blood. The patient's leukopenia and thrombocytopenia, I feel, are likely due to splenic sequestration. The patient does have splenomegaly, which certainly could account for this degree of pancytopenia. The platelets are large in size suggesting peripheral destruction, as would be expected in splenic sequestration. The patient does have some underlying liver disease. In the past, she has been told of "fatty liver." She denies any history of hepatitis and she denies alcohol use. We will get a hepatitis panel. Other studies at this time, will include iron, iron-binding capacity and a ferritin. We will also get a B12 and folic acid level. Although I think it is unlikely, the patient does have a mild hyperglobulinemia. We will evaluate for an immunoproliferative disorder by obtaining a serum protein electrophoresis, immunofixation and quantitative immunoglobulins. Although the findings of pancytopenia are not consistent with a myeloproliferative neoplasm, the patient does have splenomegaly and we will, therefore, check an LDH, uric acid as well as a JAK2 mutation. Patient's prolonged PTT of 41.6 seconds may be on the basis of liver dysfunction, although the pro time is normal. This may represent, however, a lupus anticoagulant. We will obtain a 50/50 PTT to determine if there is correction with normal plasma. Any further suggestions regarding treatment or diagnosis will depend upon the studies mentioned above. Once again, thank you very much for the opportunity of participating in the medical care of this very pleasant patient. I will be happy to follow this patient with you and assist in her oncologic evaluation and follow-up as necessary. Dictated By: Simon Fox MD /[email or web address]/jacques /Document#: [id number] CC: Fredi Gilliam NP; Dr. Ortiz;*End*
[2017-03-21] MEDS: SOD FERRIC GLUC COMPLX 125 MG in SOD CHLORIDE 0.9% 100 ML IVPB SCH (10:46)
--- NOTE | 2017-03-21 11:29 | PN ---
Date/Time of Note Date/Time of Note ERROR DUPLICATE Assessment/Plan VTE Prophylaxis VTE Prophylaxis Intervention: other Lines/Catheters [facility]from [facility] Peripheral IV Urinary Cath still in place: No Exam/Review of Systems Vital Signs Vitals Vital Signs Date Time Temp Pulse Resp B/P Pulse Ox O2 Delivery O2 Flow Rate FiO2 03/21/17 07:56 98.1 70 16 113/58 98 03/21/17 02:00 Room Air Intake and Output 03/20/17 03/20/17 03/21/17 15:00 23:00 07:00 Intake Total 1000 ml 720 ml Output Total 800 ml Balance 1000 ml -80 ml Results Result Diagram: 03/21/17 0527 03/21/17 0527 Results 24 hrs Laboratory Tests Test 03/20/17 11:30 03/20/17 19:14 03/20/17 19:23 03/20/17 19:35 White Blood Count 2.6 L Red Blood Count 3.18 L Hemoglobin 7.5 L Hematocrit 26.1 L Mean Corpuscular Volume 82.1 Mean Corpuscular Hemoglobin 23.6 L Mean Corpuscular Hemoglobin Concent 28.7 L Red Cell Distribution Width 21.1 H Platelet Count 109 L Mean Platelet Volume 12.0 H Neutrophils % 63.0 Band Neutrophils % 3.0 Lymphocytes % 20.0 Monocytes % 13.0 H Eosinophils % 1.0 Basophils % Neutrophils # 1.6 Lymphocytes # 0.5 L Monocytes # 0.3 Eosinophils # 0.0 Basophils # Nucleated Red Blood Cells # Absolute Reticulocyte Count 0.080 Percent Reticulocyte Count 2.5 H Prothrombin Time 13.8 Prothrombin Time Ratio 1.1 INR International Normalized Ratio 1.06 Activated Partial Thromboplast Time 41.6 H 37.7 H Sodium Level 142 Potassium Level 3.5 Chloride Level 102 Carbon Dioxide Level 23 Anion Gap 21 H Blood Urea Nitrogen 36 H Creatinine 1.27 H Glucose Level 93 Calcium Level 8.7 Total Bilirubin 0.1 L Direct Bilirubin 0.00 Indirect Bilirubin 0.1 Aspartate Amino Transf (AST/SGOT) 74 H Alanine Aminotransferase (ALT/SGPT) 51 Alkaline Phosphatase 175 H Total Protein 7.5 Albumin 3.1 L Globulin 4.40 H Albumin/Globulin Ratio 0.70 Lipase 302 H Iron Level 34 L Total Iron Binding Capacity 333 Percent Iron Saturation 10 L Uric Acid 6.6 Ferritin 37.1 Lactate Dehydrogenase 554 Vitamin B12 Level > 1000 H Folate 16.1 Immunoglobulin A 864 H Immunoglobulin G 1741 H Immunoglobulin M 75 Hepatitis B Surface Antigen NEGATIVE Hepatitis B Core Total Antibody NEGATIVE Hepatitis C Antibody NEGATIVE Mix PTT Normal Plasma Immediate Hepatitis B Surface Antibody POSITIVE H Test 03/21/17 05:27 White Blood Count 2.8 L Red Blood Count 2.98 L Hemoglobin 7.0 L Hematocrit 24.4 L Mean Corpuscular Volume 81.9 L Mean Corpuscular Hemoglobin 23.5 L Mean Corpuscular Hemoglobin Concent 28.7 L Red Cell Distribution Width 21.2 H Platelet Count 110 L Mean Platelet Volume 11.8 H Neutrophils % 49.3 Lymphocytes % 34.4 Monocytes % 13.8 H Eosinophils % 1.4 Basophils % 0.4 Nucleated Red Blood Cells % 0.0 Neutrophils # 1.4 L Lymphocytes # 1.0 Monocytes # 0.4 Eosinophils # 0.0 Basophils # 0.0 Nucleated Red Blood Cells # 0.0 Sodium Level 143 Potassium Level 3.3 L Chloride Level 106 Carbon Dioxide Level 23 Anion Gap 17 H Blood Urea Nitrogen 27 H Creatinine 0.98 Glucose Level 93 Hemoglobin A1c 5.2 Calcium Level 8.2 L Phosphorus Level 4.2 Magnesium Level 1.7 Total Bilirubin 0.0 L Direct Bilirubin 0.00 Indirect Bilirubin 0.0 Aspartate Amino Transf (AST/SGOT) 78 H Alanine Aminotransferase (ALT/SGPT) 46 Alkaline Phosphatase 183 H Total Protein 7.0 Albumin 3.0 L Globulin 4.00 H Albumin/Globulin Ratio 0.75 Triglycerides Level 180 H Cholesterol Level 77 L LDL Cholesterol, Calculated 29 HDL Cholesterol 12 L Cholesterol/HDL Ratio 6.4 Thyroid Stimulating Hormone (TSH) 1.370 Free Thyroxine Index 4.54 H Thyroxine (T4) 12.6 H Triiodothyronine (T3) Uptake 36.0 Medications Medications Current Medications Ondansetron HCl (Zofran Inj) 4 mg Q6H PRN IV NAUSEA AND/OR VOMITING; Start at 15:00 Acetaminophen (Tylenol Tab) 650 mg Q6H PRN PO PAIN LEVEL 1-3 OR FEVER; Start at 15:00 Acetaminophen (Tylenol Supp) 650 mg Q6H PRN [place] PAIN LEVEL 1-3 OR FEVER; Start 03/20/17 at 15:00 Acetaminophen/ Hydrocodone Bitart ([place] (5/325)) 1 tab Q6H PRN PO MODERATE PAIN LEVEL 4-6; Start 03/20/17 at 15:00 Acetaminophen/ Hydrocodone Bitart ([place] (5/325)) 2 tab Q6H PRN PO SEVERE PAIN LEVEL 7-10; Start 03/20/17 at 15:00 Morphine Sulfate (morphine) 2 mg Q4H PRN IV SEVERE PAIN LEVEL 7-10; Start 03/20 at 15:00 Docusate Sodium (Colace) 100 mg Q12H PRN PO CONSTIPATION; Start 03/20/17 at 15: 00 Magnesium Hydroxide (Milk Of Mag) 30 ml DAILY PRN PO CONSTIPATION; Start at 15:00 Bisacodyl (Dulcolax Supp) 10 mg DAILY PRN [place] CONSTIPATION; Start 03/20/17 at 15 :00 Pantoprazole 40 mg 40 mg DAILY@06 IV Last administered on 03/21/17 06:41; Admin Dose 40 MG; Start 03/21/17 at 06:00 Potassium Chloride/Sodium Chloride (KCl/1/2 NS) 1,005 ml @ 100 mls/hr Q10H3M IV Last administered on 03/21/17 09:45; Admin Dose 100 MLS/HR; Start 03/21/17 at 06:30 Epoetin Raúl 8000 units 8,000 units TuThSa@17 SC ; Start 03/21/17 at 17:00 Ferric Sodium Gluconate Complex/ Sodium Chloride (Ferrlecit/NS) 110 ml @ 100 mls/hr Q24H IVPB Last administered on 03/21/17 10:46; Admin Dose 100 MLS/HR; Start 03/21/17 at 10:00; Stop 03/23/17 at 11:05 DORI MENENDEZ Mar 21, 2017 11:29
[2017-03-21] MEDS ORDERED: METO100T13 PO (11:38)
[2017-03-21] MEDS ORDERED: TOLT2TAB13 PO (11:38)
[2017-03-21] MEDS ORDERED: IBUP800T25 PO (11:38)
[2017-03-21] MEDS ORDERED: HYDR25TA6 PO (11:38)
[2017-03-21] MEDS ORDERED: ASPI-535 PO (11:38)
[2017-03-21] MEDS ORDERED: LOSA100T7 PO (11:38)
--- NOTE | 2017-03-21 12:53 | PN ---
Date/Time of Note Date/Time of Note DATE: 03/21/17 TIME: 12:50 Assessment/Plan VTE Prophylaxis VTE Prophylaxis Intervention: SCD's Lines/Catheters IV [facility]ter Type (from [facility] Peripheral IV Urinary Cath still in place: No Assessment/Plan Chief Complaint/Hosp Course Assessment and plan 1. Reported fevers and generalized weakness. Will get physical therapy to follow. Suspect from anemia. P[employer] following. 2. Pancytopenia. Continue hematology workup. Also noted with iron deficiency. On iron supplement at this time. 3. Reported essential hypertension.Remained stable at present. Will provide with antihypertensives as needed. 4. Acute kidney injury. Improved. Will monitor for now. 5. Morbid obesity. Weight reduction was advised. Disposition plan: Continue pancytopenia workup. On iron supplement. GI consulted for anemia. We will follow-up Discussed plan of care with Problems: Subjective 24 Hr Interval Summary Free Text/Dictation Denies any abdominal pain. Appears comfortable at present. Exam/Review of Systems Vital Signs Vitals Vital Signs Date Time Temp Pulse Resp B/P Pulse Ox O2 Delivery O2 Flow Rate FiO2 03/21/17 07:56 98.1 70 16 113/58 98 03/21/17 02:00 Room Air Intake and Output 03/20/17 03/20/17 03/21/17 15:00 23:00 07:00 Intake Total 1000 ml 720 ml Output Total 800 ml Balance 1000 ml -80 ml Exam Constitutional: alert, obese, oriented Psych: no complaints Neck: supple, No jvd Respiratory: clear to auscultation, normal air movement Cardiovascular: regular rate and rhythm Gastrointestinal: soft, No tender Musculoskeletal: No nl gait and stance Neurological: LEGAL COORDINATOR II-XII intact, nl mental status, nl speech Results Result Diagram: 03/21/1727 03/21/17526 Results 24 hrs Laboratory Tests Test 03/20/17 19:14 03/20/17 19:23 03/20/17 19:35 03/21/17 05:27 Iron Level 34 L Total Iron Binding Capacity 333 Percent Iron Saturation 10 L Uric Acid 6.6 Ferritin 37.1 Lactate Dehydrogenase 554 Vitamin B12 Level > 1000 H Folate 16.1 Immunoglobulin A 864 H Immunoglobulin G 1741 H Immunoglobulin M 75 Hepatitis B Surface Antigen NEGATIVE Hepatitis B Core Total Antibody NEGATIVE Hepatitis C Antibody NEGATIVE Activated Partial Thromboplast Time 37.7 H Mix PTT Normal Plasma Immediate Hepatitis B Surface Antibody POSITIVE H White Blood Count 2.8 L Red Blood Count 2.98 L Hemoglobin 7.0 L Hematocrit 24.4 L Mean Corpuscular Volume 81.9 L Mean Corpuscular Hemoglobin 23.5 L Mean Corpuscular Hemoglobin Concent 28.7 L Red Cell Distribution Width 21.2 H Platelet Count 110 L Mean Platelet Volume 11.8 H Neutrophils % 49.3 Lymphocytes % 34.4 Monocytes % 13.8 H Eosinophils % 1.4 Basophils % 0.4 Nucleated Red Blood Cells % 0.0 Neutrophils # 1.4 L Lymphocytes # 1.0 Monocytes # 0.4 Eosinophils # 0.0 Basophils # 0.0 Nucleated Red Blood Cells # 0.0 Sodium Level 143 Potassium Level 3.3 L Chloride Level 106 Carbon Dioxide Level 23 Anion Gap 17 H Blood Urea Nitrogen 27 H Creatinine 0.98 Glucose Level 93 Hemoglobin A1c 5.2 Calcium Level 8.2 L Phosphorus Level 4.2 Magnesium Level 1.7 Total Bilirubin 0.0 L Direct Bilirubin 0.00 Indirect Bilirubin 0.0 Aspartate Amino Transf (AST/SGOT) 78 H Alanine Aminotransferase (ALT/SGPT) 46 Alkaline Phosphatase 183 H Total Protein 7.0 Albumin 3.0 L Globulin 4.00 H Albumin/Globulin Ratio 0.75 Triglycerides Level 180 H Cholesterol Level 77 L LDL Cholesterol, Calculated 29 HDL Cholesterol 12 L Cholesterol/HDL Ratio 6.4 Thyroid Stimulating Hormone (TSH) 1.370 Free Thyroxine Index 4.54 H Thyroxine (T4) 12.6 H Triiodothyronine (T3) Uptake 36.0 Medications Medications Current Medications Ondansetron HCl (Zofran Inj) 4 mg Q6H PRN IV NAUSEA AND/OR VOMITING; Start at 15:00 Acetaminophen (Tylenol Tab) 650 mg Q6H PRN PO PAIN LEVEL 1-3 OR FEVER; Start at 15:00 Acetaminophen (Tylenol Supp) 650 mg Q6H PRN [place] PAIN LEVEL 1-3 OR FEVER; Start 03/20/17 at 15:00 Acetaminophen/ Hydrocodone Bitart ([place] (5/325)) 1 tab Q6H PRN PO MODERATE PAIN LEVEL 4-6; Start 03/20/17 at 15:00 Acetaminophen/ Hydrocodone Bitart ([place] (5/325)) 2 tab Q6H PRN PO SEVERE PAIN LEVEL 7-10; Start 03/20/17 at 15:00 Morphine Sulfate (morphine) 2 mg Q4H PRN IV SEVERE PAIN LEVEL 7-10; Start 03/20 at 15:00 Docusate Sodium (Colace) 100 mg Q12H PRN PO CONSTIPATION; Start 03/20/17 at 15: 00 Magnesium Hydroxide (Milk Of Mag) 30 ml DAILY PRN PO CONSTIPATION; Start at 15:00 Bisacodyl (Dulcolax Supp) 10 mg DAILY PRN [place] CONSTIPATION; Start 03/20/17 at 15 :00 Pantoprazole 40 mg 40 mg DAILY@06 IV Last administered on 03/21/17 06:41; Admin Dose 40 MG; Start 03/21/17 at 06:00 Potassium Chloride/Sodium Chloride (KCl/1/2 NS) 1,005 ml @ 100 mls/hr Q10H3M IV Last administered on 03/21/17 09:45; Admin Dose 100 MLS/HR; Start 03/21/17 at 06:30 Epoetin Raúl 8000 units 8,000 units TuThSa@17 SC ; Start 03/21/17 at 17:00 Ferric Sodium Gluconate Complex/ Sodium Chloride (Ferrlecit/NS) 110 ml @ 100 mls/hr Q24H IVPB Last administered on 03/21/17 10:46; Admin Dose 100 MLS/HR; Start 03/21/17 at 10:00; Stop 03/23/17 at 11:05 DORI MENENDEZ Mar 21, 2017 12:53
[2017-03-21] MEDS: EPOETIN 4000 UNITS/ML VIAL (ONCOLOGY) SC SCH (16:39)
[2017-03-21 20:38] VITALS: BP 133/65; RESP 19
[2017-03-21] MEDS ORDERED: MAGNESIUM SULFATE 4 GM/100 ML 100 ML IVPB ONE (21:30)
[2017-03-21] MEDS ORDERED: SOD FERRIC GLUC COMPLX 125 MG in SOD CHLORIDE 0.9% 100 ML IVPB SCH (21:30)
[2017-03-21] MEDS ORDERED: POTASSIUM CHLORIDE (SR) 10 MEQ TAB PO ONE (21:30)
--- NOTE | 2017-03-21 21:32 | CONS ---
Date/Time of Note Date/Time of Note DATE: 03/21/17 TIME: 21:30 Consultation Date/Type/Reason Admit Date/Time Mar 20, 2017 at 14:21 Initial Consult Date 03/20/17 Type of Consultation: Renal Referring Provider: DORI MENENDEZ Exam/Review of Systems Vital Signs Vitals Vital Signs Date Time Temp Pulse Resp B/P Pulse Ox O2 Delivery O2 Flow Rate FiO2 03/21/17 20:38 98.4 74 19 133/65 100 03/21/17 02:00 Room Air Intake and Output 03/20/17 03/20/17 03/21/17 15:00 23:00 07:00 Intake Total 1000 ml 720 ml Output Total 800 ml Balance 1000 ml -80 ml Results K is low 3.3, Mg 1.7 Replace k, Mg Pt started on IV Iron for iron deff Renal fn normal, no further need for IVs Result Diagram: 03/21/17 0527 03/21/17 0527 Results 24 hrs Laboratory Tests Test 03/21/17 05:27 03/21/17 07:45 White Blood Count 2.8 L Red Blood Count 2.98 L Hemoglobin 7.0 L Hematocrit 24.4 L Mean Corpuscular Volume 81.9 L Mean Corpuscular Hemoglobin 23.5 L Mean Corpuscular Hemoglobin Concent 28.7 L Red Cell Distribution Width 21.2 H Platelet Count 110 L Mean Platelet Volume 11.8 H Neutrophils % 49.3 Lymphocytes % 34.4 Monocytes % 13.8 H Eosinophils % 1.4 Basophils % 0.4 Nucleated Red Blood Cells % 0.0 Neutrophils # 1.4 L Lymphocytes # 1.0 Monocytes # 0.4 Eosinophils # 0.0 Basophils # 0.0 Nucleated Red Blood Cells # 0.0 Sodium Level 143 Potassium Level 3.3 L Chloride Level 106 Carbon Dioxide Level 23 Anion Gap 17 H Blood Urea Nitrogen 27 H Creatinine 0.98 Glucose Level 93 Hemoglobin A1c 5.2 Calcium Level 8.2 L Phosphorus Level 4.2 Magnesium Level 1.7 Total Bilirubin 0.0 L Direct Bilirubin 0.00 Indirect Bilirubin 0.0 Aspartate Amino Transf (AST/SGOT) 78 H Alanine Aminotransferase (ALT/SGPT) 46 Alkaline Phosphatase 183 H Total Protein 7.0 Albumin 3.0 L Globulin 4.00 H Albumin/Globulin Ratio 0.75 Triglycerides Level 180 H Cholesterol Level 77 L LDL Cholesterol, Calculated 29 HDL Cholesterol 12 L Cholesterol/HDL Ratio 6.4 Thyroid Stimulating Hormone (TSH) 1.370 Free Thyroxine Index 4.54 H Thyroxine (T4) 12.6 H Triiodothyronine (T3) Uptake 36.0 Stool Occult Blood NEGATIVE Medications Medications Current Medications Ondansetron HCl (Zofran Inj) 4 mg Q6H PRN IV NAUSEA AND/OR VOMITING; Start at 15:00 Acetaminophen (Tylenol Tab) 650 mg Q6H PRN PO PAIN LEVEL 1-3 OR FEVER; Start at 15:00 Acetaminophen (Tylenol Supp) 650 mg Q6H PRN [place] PAIN LEVEL 1-3 OR FEVER; Start 03/20/17 at 15:00 Acetaminophen/ Hydrocodone Bitart ([place] (5/325)) 1 tab Q6H PRN PO MODERATE PAIN LEVEL 4-6; Start 03/20/17 at 15:00 Acetaminophen/ Hydrocodone Bitart ([place] (5/325)) 2 tab Q6H PRN PO SEVERE PAIN LEVEL 7-10; Start 03/20/17 at 15:00 Morphine Sulfate (morphine) 2 mg Q4H PRN IV SEVERE PAIN LEVEL 7-10; Start 03/20 at 15:00 Docusate Sodium (Colace) 100 mg Q12H PRN PO CONSTIPATION; Start 03/20/17 at 15: 00 Magnesium Hydroxide (Milk Of Mag) 30 ml DAILY PRN PO CONSTIPATION; Start at 15:00 Bisacodyl (Dulcolax Supp) 10 mg DAILY PRN [place] CONSTIPATION; Start 03/20/17 at 15 :00 Pantoprazole 40 mg 40 mg DAILY@06 IV Last administered on 03/21/17 06:41; Admin Dose 40 MG; Start 03/21/17 at 06:00 Potassium Chloride/Sodium Chloride (KCl/1/2 NS) 1,005 ml @ 100 mls/hr Q10H3M IV Last administered on 03/21/17 21:15; Admin Dose 100 MLS/HR; Start 03/21/17 at 06:30 Epoetin Raúl 8000 units 8,000 units TuThSa@17 SC Last administered on 16:39; Admin Dose 8,000 UNITS; Start 03/21/17 at 17:00 Ferric Sodium Gluconate Complex 125 mg/Sodium Chloride 110 ml @ 100 mls/hr Q24H IVPB Last administered on 03/21/17t 10:46; Admin Dose 100 MLS/HR; Start at 10:00; Stop 03/23/17 at 11:05 Ferric Sodium Gluconate Complex/ Sodium Chloride (Ferrlecit/NS) 110 ml @ 100 mls/hr Q24H IVPB ; Start 03/21/17 at 21:30; Stop 03/23/17 at 22:35; Status UNV Potassium Chloride (Micro-K) 16 meq BID PO ; Start 03/21/17 at 21:30; Stop 03/22 at 17:00; Status UNV BAUDILIO MOLINA MD Mar 21, 2017 21:32
[2017-03-21] MEDS ORDERED: MAGNESIUM SULFATE 4 GM/100 ML 100 ML IVPB SCH (22:00)
[2017-03-21] MEDS: POTASSIUM CHLORIDE (SR) 8 MEQ CAP PO SCH (22:24)
[2017-03-22 02:00] VITALS: BP 127/69; PULSE 64; RESP 17
[2017-03-22 02:07] LABS: ADD UMIC NO; UR ASCORBIC ACID NEGATIVE (NEGATIVE); UR BILIRUBIN (Dip) NEGATIVE (NEGATIVE); UR BLOOD (Dip) NEGATIVE (NEGATIVE); UR CLARITY CLEAR (CLEAR); UR COLOR STRAW (YELLOW); UR GLUCOSE (Dip) NEGATIVE (NEGATIVE); UR KETONES (Dip) NEGATIVE (NEGATIVE); UR LEUKOCYTE ESTERASE (Dip) NEGATIVE Leu/ul (NEGATIVE); UR NITRITE (Dip) NEGATIVE (NEGATIVE); UR SPECIFIC GRAVITY (Dip) 1.008 (1.003-1.030); UR TOTAL PROTEIN (Dip) NEGATIVE (NEGATIVE); UR UROBILINOGEN (Dip) NEGATIVE (NEGATIVE)
[2017-03-22] MEDS: PANTOPRAZOLE 40 MG INJ IV SCH (05:43)
[2017-03-22 05:57] LABS: PROTEIN, TOTAL 6.8 g/dL (6.1-8.1)
[2017-03-22 06:53] LABS: ABNORMAL IP MESSAGE 1; BASOPHILS % 0.4 % (0.0-2.0); EOSINOPHILS # 0.1 10^3/ul (0.0-0.5); HEMATOCRIT 25.5 % (37.0-47.0); HEMOGLOBIN 7.5 g/dl (12.0-16.0); LYMPHOCYTES % 40.1 % (15.0-51.0); MEAN CORPUSCULAR HEMOGLOBIN 24.5 pg (29.0-33.0); MEAN CORPUSCULAR HGB CONC 29.4 g/dl (32.0-37.0); MEAN CORPUSCULAR VOLUME 83.3 fl (82.0-101.0); MEAN PLATELET VOLUME 12.4 fl (7.4-10.4); MONOCYTE # 0.4 10^3/ul (0.3-0.9); MONOCYTES % 16.2 % (0.0-11.0); NEUTROPHILS % 38.9 % (39.0-77.0); PLATELET COUNT 115 10^3/UL (140-415); RED BLOOD COUNT 3.06 10^6/ul (4.20-5.40); RED CELL DISTRIBUTION WIDTH 21.2 % (11.5-14.5); WHITE BLOOD COUNT 2.5 10^3/ul (4.8-10.8)
[2017-03-22 06:56] LABS: POSITIVE DIFF @See below
[2017-03-22 07:26] LABS: ALBUMIN 2.9 g/dl (3.3-4.9); ALBUMIN/GLOBULIN RATIO 0.69; BILIRUBIN,INDIRECT 0.1 mg/dl (0-1.1); BILIRUBIN,TOTAL 0.1 mg/dl (0.2-1.3); CALCIUM 8.8 mg/dl (8.4-10.2); CREATININE 0.69 mg/dl (0.44-1.00); POTASSIUM 3.4 mmol/L (3.5-5.1); TOTAL PROTEIN 7.1 g/dl (6.1-8.1)
[2017-03-22 08:02] VITALS: BP 147/66; RESP 18
[2017-03-22] MEDS: POTASSIUM CHLORIDE (SR) 8 MEQ CAP PO SCH (09:09)
[2017-03-22] MEDS: SOD FERRIC GLUC COMPLX 125 MG in SOD CHLORIDE 0.9% 100 ML IVPB SCH (09:40)
--- NOTE | 2017-03-22 10:23 | CONS ---
Date/Time of Note Date/Time of Note DATE: 03/22/17 TIME: 10:10 Assessment/Plan Assessment/Plan Additional Assessment/Plan Assessment * Anemia r/o upper gi bleed vs iron deficiency vs others * Hypertension * Obesity Plan * EGD risk and benefit explained to patient and agreed with the planned procedure * continue present management Consultation Date/Type/Reason Admit Date/Time Mar 20, 2017 at 14:21 Date of Consultation: Mar 22, 2017 Type of Consultation: gastroenterology Reason for Consultation anemia Referring Provider: DORI MENENDEZ Hx of Present Illness 61 year old female with past medical history of hypertension presented in the emergency room complaining body malaise .Present condition apparently started 5 days prior to consult as feeling of fever,associated body malaise.SHe claims also having mild chest pain relieved spontaneously/She denies any episode of hematemesis,hematochezia,nor abdominal pain but had 1 episode of vomiting consisting of previously ingested food.Emergency room course revealed anemia hemoglobin 7.5,hematocrit 25.1,[id number],platelet [id number] pt 13.8,INR 1.06 [address] 37[address] abdomen and pelvis 1. Obesity with rectus diastasis and associated midline umbilical hernia containing only fat. This hernia measures up to 4.6 cm in long axis with the neck of the hernia measuring 2.2 cm sagittal. 2. Diverticulosis of the descending and sigmoid colon. No convincing evidence of diverticulitis or appendicitis. 3. Cardiomegaly. 4. Mild hepatomegaly. 6. Splenomegaly. The spleen measures 15.8 cm AP. 7. Status post hysterectomy and bilateral salpingo-oophorectomy. 8. Osteoarthritis of the thoracic and lumbosacral spine. Patient denies any abdominal pain nor episodes of bleeding at this time,, explained the planned procedure EGD tomorrow and agreed with the planned procedure. Discussion was made with the aid of paramedic instructor id number [id number] Constitutional: No requiring O2 Eyes: no complaints ENT: no complaints Respiratory: no complaints Cardiovascular: No chest pain Gastrointestinal: no complaints Genitourinary: dysuria, No hematuria Musculoskeletal: no complaints Skin: no complaints Neurologic: no complaints Endocrine: no complaints Lymphatic: no complaints Psychological: no complaints Immunologic: no complaints Past Medical History Medical History: hypertension Past Surgical History Past Surgical Hx: other (SHANNON BSO) Social History Alcohol Use: none Smoking Status: Never smoker Drug Use: none Exam/Review of Systems Vital Signs Vitals Vital Signs Date Time Temp Pulse Resp B/P Pulse Ox O2 Delivery O2 Flow Rate FiO2 03/22/17 08:02 98.1 72 18 147/66 99 03/22/17 02:00 Room Air Intake and Output 03/21/17 03/21/17 03/22/17 15:00 23:00 07:00 Intake Total 110 ml 1505 ml 700 ml Output Total 900 ml Balance 110 ml 1505 ml -200 ml Exam Constitutional: alert, oriented, well developed Psych: nl mood/affect, no complaints Head: atraumatic, normocephalic Eyes: EOMI, PERRL, nl conjunctiva, nl lids, nl sclera ENMT: nl external ears & nose, nl lips & teeth, nl nasal mucosa & septum Neck: non-tender, supple Respiratory: clear to auscultation, normal air movement Cardiovascular: nl pulses, regular rate and rhythm Gastrointestinal: nl liver, spleen, non-tender, soft Musculoskeletal: nl extremities to inspection, nl gait and stance Extremities: normal pulses Neurological: WRINGER MACHINE OPERATOR II-XII intact, nl mental status, nl speech, nl strength Skin: nl turgor, No rash or lesions Lymph: nl lymph nodes Results Result Diagram: 03/22/17 0503/22/17 0523 Results 24 hrs Laboratory Tests Test 03/21/17 21:25 03/22/17 05:23 Urine Color STRAW Urine Clarity CLEAR Urine pH 6.0 Urine Specific [place] 1.008 Urine Ketones NEGATIVE Urine Nitrite NEGATIVE Urine Bilirubin NEGATIVE Urine Urobilinogen NEGATIVE Urine Leukocyte Esterase NEGATIVE Urine Hemoglobin NEGATIVE Urine Glucose NEGATIVE Urine Total Protein NEGATIVE White Blood Count 2.5 L Red Blood Count 3.06 L Hemoglobin 7.5 L Hematocrit 25.5 L Mean Corpuscular Volume 83.3 Mean Corpuscular Hemoglobin 24.5 L Mean Corpuscular Hemoglobin Concent 29.4 L Red Cell Distribution Width 21.2 H Platelet Count 115 L Mean Platelet Volume 12.4 H Neutrophils % 38.9 L Lymphocytes % 40.1 Monocytes % 16.2 H Eosinophils % 4.0 Basophils % 0.4 Nucleated Red Blood Cells % 0.0 Neutrophils # 1.0 L Lymphocytes # 1.0 Monocytes # 0.4 Eosinophils # 0.1 Basophils # 0.0 Nucleated Red Blood Cells # 0.0 Sodium Level 145 H Potassium Level 3.4 L Chloride Level 105 Carbon Dioxide Level 26 Anion Gap 17 H Blood Urea Nitrogen 16 # Creatinine 0.69 Glucose Level 93 Calcium Level 8.8 Total Bilirubin 0.1 L Direct Bilirubin 0.00 Indirect Bilirubin 0.1 Aspartate Amino Transf (AST/SGOT) 63 H Alanine Aminotransferase (ALT/SGPT) 38 Alkaline Phosphatase 175 H Total Protein 7.1 Albumin 2.9 L Globulin 4.20 H Albumin/Globulin Ratio 0.69 Medications Medications Current Medications Ondansetron HCl (Zofran Inj) 4 mg Q6H PRN IV NAUSEA AND/OR VOMITING; Start at 15:00 Acetaminophen (Tylenol Tab) 650 mg Q6H PRN PO PAIN LEVEL 1-3 OR FEVER; Start at 15:00 Acetaminophen (Tylenol Supp) 650 mg Q6H PRN [place] PAIN LEVEL 1-3 OR FEVER; Start 03/20/17 at 15:00 Acetaminophen/ Hydrocodone Bitart ([place] (5/325)) 1 tab Q6H PRN PO MODERATE PAIN LEVEL 4-6; Start 03/20/17 at 15:00 Acetaminophen/ Hydrocodone Bitart ([place] (5/325)) 2 tab Q6H PRN PO SEVERE PAIN LEVEL 7-10; Start 03/20/17 at 15:00 Morphine Sulfate (morphine) 2 mg Q4H PRN IV SEVERE PAIN LEVEL 7-10; Start 03/20 at 15:00 Docusate Sodium (Colace) 100 mg Q12H PRN PO CONSTIPATION; Start 03/20/17 at 15: 00 Magnesium Hydroxide (Milk Of Mag) 30 ml DAILY PRN PO CONSTIPATION; Start at 15:00 Bisacodyl (Dulcolax Supp) 10 mg DAILY PRN [place] CONSTIPATION; Start 03/20/17 at 15 :00 Pantoprazole (Protonix Iv) 40 mg DAILY@06 IV Last administered on 03/22/17 05: 43; Admin Dose 40 MG; Start 03/21/17 at 06:00 Epoetin Raúl 8000 units 8,000 units TuThSa@17 SC Last administered on t 16:39; Admin Dose 8,000 UNITS; Start 03/21/17 at 17:00 Ferric Sodium Gluconate Complex/ Sodium Chloride (Ferrlecit/NS) 110 ml @ 100 mls/hr Q24H IVPB Last administered on 03/22/17 09:40; Admin Dose 100 MLS/HR; Start 03/21/17 at 10:00; Stop 03/23/17 at 11:05 Potassium Chloride (Micro-K) 16 meq BID PO Last administered on 03/22/17 09:09 ; Admin Dose 16 MEQ; Start 03/21/17 at 21:30; Stop 03/22/17 at 17:00 ZAYDA COBURN MD Mar 22, 2017 10:20
--- NOTE | 2017-03-22 13:44 | PN ---
Date/Time of Note Date/Time of Note DATE: 03/22/17 TIME: 13:42 Assessment/Plan VTE Prophylaxis VTE Prophylaxis Intervention: SCD's Lines/Catheters IV [facility]ter Type (from [facility]): Peripheral IV Urinary Cath still in place: No Assessment/Plan Chief Complaint/Hosp Course Assessment and plan 1. Reported fevers and generalized weakness. Suspect from anemia. Blood product infusion per cosmetic manager. Continue physical therapy. 2. Pancytopenia. Continue hematology workup. Also with iron deficiency. Continue with iron supplement. Transfuse blood products as needed. Tentative plan for EGD to find for possible GI etiology 3. Reported essential hypertension.Remained stable at present. Will provide with antihypertensives as needed. 4. Acute kidney injury. Improved. Will monitor for now. 5. Morbid obesity. Weight reduction was advised. Disposition plan: Tentative plan for EGD. Will follow up Discussed plan of care with Problems: Subjective 24 Hr Interval Summary Free Text/Dictation Comfortable at present. No specific complaints. Denies any pain. Family at bedside. Exam/Review of Systems Vital Signs Vitals Vital Signs Date Time Temp Pulse Resp B/P Pulse Ox O2 Delivery O2 Flow Rate FiO2 03/22/17 08:02 98.1 72 18 147/66 99 03/22/17 02:00 Room Air Intake and Output 03/21/17 03/21/17 03/22/17 15:00 23:00 07:00 Intake Total 110 ml 1505 ml 700 ml Output Total 900 ml Balance 110 ml 1505 ml -200 ml Exam Constitutional: alert, obese, oriented Psych: nl mood/affect Eyes: nl conjunctiva Respiratory: normal air movement Cardiovascular: regular rate and rhythm Gastrointestinal: non-tender, soft Musculoskeletal: No nl gait and stance Neurological: GLOBAL PROJECT MANAGER II-XII intact, nl mental status, nl speech Results Result Diagram: 03/22/17 0503/22/17 0523 Results 24 hrs Laboratory Tests Test 03/21/17 21:25 03/22/17 05:23 Urine Color STRAW Urine Clarity CLEAR Urine pH 6.0 Urine Specific [place] 1.008 Urine Ketones NEGATIVE Urine Nitrite NEGATIVE Urine Bilirubin NEGATIVE Urine Urobilinogen NEGATIVE Urine Leukocyte Esterase NEGATIVE Urine Hemoglobin NEGATIVE Urine Glucose NEGATIVE Urine Total Protein NEGATIVE White Blood Count 2.5 L Red Blood Count 3.06 L Hemoglobin 7.5 L Hematocrit 25.5 L Mean Corpuscular Volume 83.3 Mean Corpuscular Hemoglobin 24.5 L Mean Corpuscular Hemoglobin Concent 29.4 L Red Cell Distribution Width 21.2 H Platelet Count 115 L Mean Platelet Volume 12.4 H Neutrophils % 38.9 L Lymphocytes % 40.1 Monocytes % 16.2 H Eosinophils % 4.0 Basophils % 0.4 Nucleated Red Blood Cells % 0.0 Neutrophils # 1.0 L Lymphocytes # 1.0 Monocytes # 0.4 Eosinophils # 0.1 Basophils # 0.0 Nucleated Red Blood Cells # 0.0 Sodium Level 145 H Potassium Level 3.4 L Chloride Level 105 Carbon Dioxide Level 26 Anion Gap 17 H Blood Urea Nitrogen 16 # Creatinine 0.69 Glucose Level 93 Calcium Level 8.8 Total Bilirubin 0.1 L Direct Bilirubin 0.00 Indirect Bilirubin 0.1 Aspartate Amino Transf (AST/SGOT) 63 H Alanine Aminotransferase (ALT/SGPT) 38 Alkaline Phosphatase 175 H Total Protein 7.1 Albumin 2.9 L Globulin 4.20 H Albumin/Globulin Ratio 0.69 Medications Medications Current Medications Ondansetron HCl (Zofran Inj) 4 mg Q6H PRN IV NAUSEA AND/OR VOMITING; Start at 15:00 Acetaminophen (Tylenol Tab) 650 mg Q6H PRN PO PAIN LEVEL 1-3 OR FEVER; Start at 15:00 Acetaminophen (Tylenol Supp) 650 mg Q6H PRN [place] PAIN LEVEL 1-3 OR FEVER; Start 03/20/17 at 15:00 Acetaminophen/ Hydrocodone Bitart ([place] (5/325)) 1 tab Q6H PRN PO MODERATE PAIN LEVEL 4-6; Start 03/20/17 at 15:00 Acetaminophen/ Hydrocodone Bitart ([place] (5/325)) 2 tab Q6H PRN PO SEVERE PAIN LEVEL 7-10; Start 03/20/17 at 15:00 Morphine Sulfate (morphine) 2 mg Q4H PRN IV SEVERE PAIN LEVEL 7-10; Start 03/20 at 15:00 Docusate Sodium (Colace) 100 mg Q12H PRN PO CONSTIPATION; Start 03/20/17 at 15: 00 Magnesium Hydroxide (Milk Of Mag) 30 ml DAILY PRN PO CONSTIPATION; Start at 15:00 Bisacodyl (Dulcolax Supp) 10 mg DAILY PRN [place] CONSTIPATION; Start 03/20/17 at 15 :00 Pantoprazole (Protonix Iv) 40 mg DAILY@06 IV Last administered on 03/22/17 05: 43; Admin Dose 40 MG; Start 03/21/17 at 06:00 Epoetin Raúl 8000 units 8,000 units TuThSa@17 SC Last administered on 16:39; Admin Dose 8,000 UNITS; Start 03/21/17 at 17:00 Ferric Sodium Gluconate Complex/ Sodium Chloride (Ferrlecit/NS) 110 ml @ 100 mls/hr Q24H IVPB Last administered on 03/22/17 09:40; Admin Dose 100 MLS/HR; Start 03/21/17 at 10:00; Stop 03/23/17 at 11:05 Potassium Chloride (Micro-K) 16 meq BID PO Last administered on 03/22/17 09:09 ; Admin Dose 16 MEQ; Start 03/21/17 at 21:30; Stop 03/22/17 at 17:00 Atorvastatin Calcium (Lipitor) 20 mg HS PO ; Start 03/22/17 at 21:00 DORI MENENDEZ Mar 22, 2017 13:44
--- NOTE | 2017-03-22 15:37 | PN ---
Date/Time of Note Date/Time of Note DATE: 03/22/17 TIME: 15:34 Assessment/Plan VTE Prophylaxis VTE Prophylaxis Intervention: anti-embolic stocking Lines/Catheters [facility]from [facility] Peripheral IV Urinary Cath still in place: No Assessment/Plan Assessment/Plan Patient is a 61 year old woman admitted for weakness noted on routine examination to have anemia, thrombocytopenia and leukopenia >Leukopenia, anemia, thrombocytopenia Examination of iron panel, vitamin B12 and folate demonstrated iron deficiency IV iron administered Continue to monitor counts, but seems to be slowly improving. >R/O GI bleed Plan for EGD Dr. Michelle to resume care tomorrow. Subjective 24 Hr Interval Summary Free Text/Dictation Patient awake, alert, responsive. Denies any clinical signs of bleeding. Exam/Review of Systems Vital Signs Vitals Vital Signs Date Time Temp Pulse Resp B/P Pulse Ox O2 Delivery O2 Flow Rate FiO2 03/22/17 08:02 98.1 72 18 147/66 99 03/22/17 02:00 Room Air Intake and Output 03/21/17 03/21/17 03/22/17 15:00 23:00 07:00 Intake Total 110 ml 1505 ml 700 ml Output Total 900 ml Balance 110 ml 1505 ml -200 ml Exam Constitutional: alert, obese, oriented Head: atraumatic, normocephalic Eyes: EOMI, nl lids Neck: non-tender, supple Respiratory: clear to auscultation, normal air movement Cardiovascular: nl pulses, regular rate and rhythm Gastrointestinal: non-tender, soft Extremities: normal pulses Neurological: PEN MAKER II-XII intact, nl mental status Results Result Diagram: 03/22/17 0523 03/22/17522 Results 24 hrs Laboratory Tests Test 03/21/17 21:25 03/22/17 05:23 Urine Color STRAW Urine Clarity CLEAR Urine pH 6.0 Urine Specific [place] 1.008 Urine Ketones NEGATIVE Urine Nitrite NEGATIVE Urine Bilirubin NEGATIVE Urine Urobilinogen NEGATIVE Urine Leukocyte Esterase NEGATIVE Urine Hemoglobin NEGATIVE Urine Glucose NEGATIVE Urine Total Protein NEGATIVE White Blood Count 2.5 L Red Blood Count 3.06 L Hemoglobin 7.5 L Hematocrit 25.5 L Mean Corpuscular Volume 83.3 Mean Corpuscular Hemoglobin 24.5 L Mean Corpuscular Hemoglobin Concent 29.4 L Red Cell Distribution Width 21.2 H Platelet Count 115 L Mean Platelet Volume 12.4 H Neutrophils % 38.9 L Lymphocytes % 40.1 Monocytes % 16.2 H Eosinophils % 4.0 Basophils % 0.4 Nucleated Red Blood Cells % 0.0 Neutrophils # 1.0 L Lymphocytes # 1.0 Monocytes # 0.4 Eosinophils # 0.1 Basophils # 0.0 Nucleated Red Blood Cells # 0.0 Sodium Level 145 H Potassium Level 3.4 L Chloride Level 105 Carbon Dioxide Level 26 Anion Gap 17 H Blood Urea Nitrogen 16 # Creatinine 0.69 Glucose Level 93 Calcium Level 8.8 Total Bilirubin 0.1 L Direct Bilirubin 0.00 Indirect Bilirubin 0.1 Aspartate Amino Transf (AST/SGOT) 63 H Alanine Aminotransferase (ALT/SGPT) 38 Alkaline Phosphatase 175 H Total Protein 7.1 Albumin 2.9 L Globulin 4.20 H Albumin/Globulin Ratio 0.69 Medications Medications Current Medications Ondansetron HCl (Zofran Inj) 4 mg Q6H PRN IV NAUSEA AND/OR VOMITING; Start at 15:00 Acetaminophen (Tylenol Tab) 650 mg Q6H PRN PO PAIN LEVEL 1-3 OR FEVER; Start at 15:00 Acetaminophen (Tylenol Supp) 650 mg Q6H PRN [place] PAIN LEVEL 1-3 OR FEVER; Start 03/20/17 at 15:00 Acetaminophen/ Hydrocodone Bitart ([place] (5/325)) 1 tab Q6H PRN PO MODERATE PAIN LEVEL 4-6; Start 03/20/17 at 15:00 Acetaminophen/ Hydrocodone Bitart ([place] (5/325)) 2 tab Q6H PRN PO SEVERE PAIN LEVEL 7-10; Start 03/20/17 at 15:00 Morphine Sulfate (morphine) 2 mg Q4H PRN IV SEVERE PAIN LEVEL 7-10; Start 03/20 at 15:00 Docusate Sodium (Colace) 100 mg Q12H PRN PO CONSTIPATION; Start 03/20/17 at 15: 00 Magnesium Hydroxide (Milk Of Mag) 30 ml DAILY PRN PO CONSTIPATION; Start at 15:00 Bisacodyl (Dulcolax Supp) 10 mg DAILY PRN [place] CONSTIPATION; Start 03/20/17 at 15 :00 Pantoprazole (Protonix Iv) 40 mg DAILY@06 IV Last administered on 03/22/17t 05: 43; Admin Dose 40 MG; Start 03/21/17 at 06:00 Epoetin Raúl 8000 units 8,000 units TuThSa@17 SC Last administered on 16:39; Admin Dose 8,000 UNITS; Start 03/21/17 at 17:00 Ferric Sodium Gluconate Complex/ Sodium Chloride (Ferrlecit/NS) 110 ml @ 100 mls/hr Q24H IVPB Last administered on 03/22/17 09:40; Admin Dose 100 MLS/HR; Start 03/21/17 at 10:00; Stop 03/23/17 at 11:05 Potassium Chloride (Micro-K) 16 meq BID PO Last administered on 03/22/17 09:09 ; Admin Dose 16 MEQ; Start 03/21/17 at 21:30; Stop 03/22/17 at 17:00 Atorvastatin Calcium (Lipitor) 20 mg HS PO ; Start 03/22/17 at 21:00 MARCELA MONTENEGRO MD Mar 22, 2017 15:37
[2017-03-22 19:30] VITALS: BP 137/76; RESP 16
[2017-03-22] MEDS: ATORVASTATIN 20 MG TAB PO SCH (20:11)
[2017-03-23] VITALS (13 sets, daily range): BP systolic 128–163; BP diastolic 60–102; PULSE 71–77; RESP 16–22
[2017-03-23 00:14] LABS: SCRET 0.69 mg/dl (0.44-1.00)
[2017-03-23] MEDS: PANTOPRAZOLE 40 MG INJ IV SCH (05:14)
[2017-03-23 07:01] LABS: ABNORMAL IP MESSAGE 1; BASOPHILS % 0.4 % (0.0-2.0); EOSINOPHILS # 0.2 10^3/ul (0.0-0.5); EOSINOPHILS % 5.3 % (0.0-7.0); HEMATOCRIT 27.1 % (37.0-47.0); HEMOGLOBIN 7.7 g/dl (12.0-16.0); LYMPHOCYTES # 1.2 10^3/ul (0.8-2.9); LYMPHOCYTES % 43.8 % (15.0-51.0); MEAN CORPUSCULAR HEMOGLOBIN 23.4 pg (29.0-33.0); MEAN CORPUSCULAR HGB CONC 28.4 g/dl (32.0-37.0); MEAN CORPUSCULAR VOLUME 82.4 fl (82.0-101.0); MEAN PLATELET VOLUME 12.2 fl (7.4-10.4); MONOCYTE # 0.3 10^3/ul (0.3-0.9); MONOCYTES % 11.7 % (0.0-11.0); NEUTROPHIL # 1.1 10^3/ul (1.6-7.5); NEUTROPHILS % 38.4 % (39.0-77.0); PLATELET COUNT 136 10^3/UL (140-415); RED BLOOD COUNT 3.29 10^6/ul (4.20-5.40); RED CELL DISTRIBUTION WIDTH 21.5 % (11.5-14.5); WHITE BLOOD COUNT 2.8 10^3/ul (4.8-10.8)
[2017-03-23 07:03] LABS: POSITIVE DIFF @See below
[2017-03-23 07:44] LABS: CALCIUM 8.7 mg/dl (8.4-10.2); CREATININE 0.63 mg/dl (0.44-1.00); POTASSIUM 3.5 mmol/L (3.5-5.1)
[2017-03-23] MEDS: SOD FERRIC GLUC COMPLX 125 MG in SOD CHLORIDE 0.9% 100 ML IVPB SCH (10:57)
--- NOTE | 2017-03-23 14:38 | PN ---
Date/Time of Note Date/Time of Note DATE: 03/23/17 TIME: 14:36 Assessment/Plan VTE Prophylaxis VTE Prophylaxis Intervention: SCD's Lines/Catheters [facility] (from [facility]): Peripheral IV Urinary Cath still in place: No Assessment/Plan Chief Complaint/Hosp Course Assessment and plan 1. Reported fevers and generalized weakness. Suspect from anemia. Blood product infusion per optometric technician. Continue physical therapy. 2. Pancytopenia. Continue hematology workup. Also with iron deficiency. Continue with iron supplement. Transfuse blood products as needed. Tentative plan for EGD to find for possible GI etiology 3. Reported essential hypertension.Remained stable at present. Will provide with antihypertensives as needed. 4. Acute kidney injury. Improved. Will monitor for now. 5. Morbid obesity. Weight reduction was advised. Disposition plan: Tentative plan for EGD. Will follow up. cont analgesics as needed Discussed plan of care with Dr. Haywood Problems: Subjective 24 Hr Interval Summary Free Text/Dictation Resting at this time. Denies any abdominal pain. Spouse is at bedside Exam/Review of Systems Vital Signs Vitals Vital Signs Date Time Temp Pulse Resp B/P Pulse Ox O2 Delivery O2 Flow Rate FiO2 03/23/17 09:23 98.4 76 18 135/60 98 03/22/17 02:00 Room Air Intake and Output 03/22/17 03/22/17 03/23/17 15:00 23:00 07:00 Intake Total 110 ml 960 ml 920 ml Output Total 1200 ml 1000 ml Balance 110 ml -240 ml -80 ml Exam Constitutional: alert, obese, oriented Psych: nl mood/affect Head: normocephalic Eyes: nl conjunctiva Neck: No jvd Respiratory: clear to auscultation, normal air movement Cardiovascular: regular rate and rhythm Gastrointestinal: non-tender, soft Musculoskeletal: nl extremities to inspection Extremities: normal pulses Neurological: SPLICER APPRENTICE II-XII intact, nl mental status, nl speech Skin: nl turgor Results Result Diagram: 03/23/1762603/23/17626 Results 24 hrs Laboratory Tests Test 03/22/17 21:30 03/23/17 06:27 03/23/17 09:15 Urine Random Creatinine 26.49 Urine Collection Duration 24 Urine Total Volume 24 Hours 3900 Urine Creatinine Timed 24 Creatinine Clearance 104.0 Urine Total Volume (Protein) 3900 Urine Total Protein 24 Hour 468.0 H White Blood Count 2.8 L Red Blood Count 3.29 L Hemoglobin 7.7 L Hematocrit 27.1 L Mean Corpuscular Volume 82.4 Mean Corpuscular Hemoglobin 23.4 L Mean Corpuscular Hemoglobin Concent 28.4 L Red Cell Distribution Width 21.5 H Platelet Count 136 L Mean Platelet Volume 12.2 H Neutrophils % 38.4 L Lymphocytes % 43.8 Monocytes % 11.7 H Eosinophils % 5.3 Basophils % 0.4 Nucleated Red Blood Cells % 0.0 Neutrophils # 1.1 L Lymphocytes # 1.2 Monocytes # 0.3 Eosinophils # 0.2 Basophils # 0.0 Nucleated Red Blood Cells # 0.0 Sodium Level 144 Potassium Level 3.5 Chloride Level 104 Carbon Dioxide Level 27 Anion Gap 17 H Blood Urea Nitrogen 10 Creatinine 0.63 Glucose Level 103 Calcium Level 8.7 Stool Occult Blood NEGATIVE Medications Medications Current Medications Ondansetron HCl (Zofran Inj) 4 mg Q6H PRN IV NAUSEA AND/OR VOMITING; Start at 15:00 Acetaminophen (Tylenol Tab) 650 mg Q6H PRN PO PAIN LEVEL 1-3 OR FEVER; Start at 15:00 Acetaminophen (Tylenol Supp) 650 mg Q6H PRN [place] PAIN LEVEL 1-3 OR FEVER; Start 03/20/17 at 15:00 Acetaminophen/ Hydrocodone Bitart ([place] (5/325)) 1 tab Q6H PRN PO MODERATE PAIN LEVEL 4-6; Start 03/20/17 at 15:00 Acetaminophen/ Hydrocodone Bitart ([place] (5/325)) 2 tab Q6H PRN PO SEVERE PAIN LEVEL 7-10; Start 03/20/17 at 15:00 Morphine Sulfate (morphine) 2 mg Q4H PRN IV SEVERE PAIN LEVEL 7-10; Start 03/20 at 15:00 Docusate Sodium (Colace) 100 mg Q12H PRN PO CONSTIPATION; Start 03/20/17 at 15: 00 Magnesium Hydroxide (Milk Of Mag) 30 ml DAILY PRN PO CONSTIPATION; Start at 15:00 Bisacodyl (Dulcolax Supp) 10 mg DAILY PRN [place] CONSTIPATION; Start 03/20/17 at 15 :00 Pantoprazole (Protonix Iv) 40 mg DAILY@06 IV Last administered on 03/23/17 05: 14; Admin Dose 40 MG; Start 03/21/17 at 06:00 Epoetin Raúl (Epogen (Oncology)) 8,000 units TuThSa@17 SC Last administered on 03/21/17 16:39; Admin Dose 8,000 UNITS; Start 03/21/17 at 17:00 Atorvastatin Calcium (Lipitor) 20 mg HS PO Last administered on 03/22/17 20:11 ; Admin Dose 20 MG; Start 03/22/17 at 21:00 DORI MENENDEZ Mar 23, 2017 14:38
[2017-03-23] MEDS ORDERED: PROPOFOL 20 ML ONE (16:02)
[2017-03-23] MEDS ORDERED: LIDOCAINE 2% (SDV) 5 ML INJ ONE (16:02)
[2017-03-23] MEDS ORDERED: MIDAZOLAM 1 MG/ML 2 ML INJ ONE (16:02)
[2017-03-23] MEDS ORDERED: hydrALAzine 20 MG INJ IV PRN (16:30)
[2017-03-23] MEDS ORDERED: ONDANSETRON 4 MG INJ IV PRN (16:30)
[2017-03-23] MEDS ORDERED: HYDROmorphONE (0.2 MG/ML) 10ML SYG IV PRN (16:30)
[2017-03-23] MEDS ORDERED: LABETALOL HCL 20MG INJ IV PRN (16:30)
[2017-03-23] MEDS: ATORVASTATIN 20 MG TAB PO SCH (20:13)
[2017-03-24] MEDS: PANTOPRAZOLE 40 MG INJ IV SCH (05:16)
[2017-03-24 08:12] VITALS: BP 130/75; RESP 18
[2017-03-24 08:42] LABS: BASOPHILS % 0.3 % (0.0-2.0); EOSINOPHILS # 0.2 10^3/ul (0.0-0.5); EOSINOPHILS % 4.9 % (0.0-7.0); HEMATOCRIT 28.3 % (37.0-47.0); HEMOGLOBIN 8.3 g/dl (12.0-16.0); LYMPHOCYTES # 1.1 10^3/ul (0.8-2.9); LYMPHOCYTES % 36.5 % (15.0-51.0); MEAN CORPUSCULAR HEMOGLOBIN 24.6 pg (29.0-33.0); MEAN CORPUSCULAR HGB CONC 29.3 g/dl (32.0-37.0); MEAN CORPUSCULAR VOLUME 83.7 fl (82.0-101.0); MEAN PLATELET VOLUME 11.9 fl (7.4-10.4); MONOCYTE # 0.4 10^3/ul (0.3-0.9); MONOCYTES % 11.7 % (0.0-11.0); NEUTROPHIL # 1.4 10^3/ul (1.6-7.5); NEUTROPHILS % 45.9 % (39.0-77.0); PLATELET COUNT 151 10^3/UL (140-415); RED BLOOD COUNT 3.38 10^6/ul (4.20-5.40); RED CELL DISTRIBUTION WIDTH 21.3 % (11.5-14.5); WHITE BLOOD COUNT 3.1 10^3/ul (4.8-10.8)
[2017-03-24 08:57] LABS: CALCIUM 8.6 mg/dl (8.4-10.2); CREATININE 0.61 mg/dl (0.44-1.00); POTASSIUM 3.5 mmol/L (3.5-5.1)
--- NOTE | 2017-03-24 12:49 | GILP ---
DATE OF PROCEDURE: PROCEDURE: Esophagogastroduodenoscopy with biopsy. HISTORY AND INDICATIONS: The patient is being evaluated for anemia and pancytopenia. PREMEDICATION: Monitored anesthesia care by anesthesiologist. INSTRUMENT USED: Olympus . TECHNIQUE: After informed consent, with the patient/relatives understanding the procedure, its indications, potential risks and complications, including but not limited to: allergic reaction, bleeding, perforation or infection, and after all pertinent questions were answered to the patients satisfaction, the patient/relatives signed witnessed informed consent. Following this, premedication was administered slowly IV push under careful cardiovascular and respiratory monitoring with pulse oximetry, automatic blood pressure and entertainment manager. Once the sedative effect was achieved the patient was place in the left lateral decubitus, the panendoscope was introduced and advanced under visual control. Careful examination of the upper gastrointestinal tract, both on insertion as well as withdrawal of the instrument disclosed the following findings: Esophagus: The distal esophagus shows erythema and edema of the mucosa of a moderate degree. Stomach: Upon entrance to the stomach air was insufflated, the gastric amaral distended normally. There is erythema and edema in the mucosa of a moderate degree. Biopsies were obtained to rule out H. pylori infection. Pylorus: The pylorus appears patent and within normal limits, with no evidence of gastric outlet obstruction. Duodenum: The duodenal mucosa was carefully examined in the duodenal bulb as well as the second portion of the duodenum and appears unremarkable with no evidence of duodenitis, ulcer or neoplasm. The instrument was then withdrawn, the patient tolerated the procedure well and was transfer out of the endoscopy suite awake, and in good condition to continue recovery under observation. IMPRESSION: 1. Distal esophagitis. 2. Gastritis, rule out Helicobacter pylori infection, biopsies obtained RECOMMENDATIONS: The patient will be treated with PPIs. Pathology will be reviewed as soon as available and further recommendations [____] the patient's clinical course as well as review of pathology. Dictated By: Vernon Waldron MD /[email or web address]/damion /Document#: [id number]
[2017-03-24] MEDS ORDERED: PANT40TA3 PO (12:54)
--- NOTE | 2017-03-24 12:55 | PDOCDIS ---
Discharge Instructions CONDITION Patient Condition: Good HOME CARE INSTRUCTIONS: Diet Instructions: Reduced Calorie ACTIVITY: Activity Restrictions: No Restrictions FOLLOW UP/APPOINTMENTS Follow-up Plan FOLLOW UP WITH YOUR PRIMARY CARE PHYSICIAN IN 1-2 WEEKS KIM VASQUEZ Mar 24, 2017 12:55
[2017-03-24] MEDS ORDERED: ASC500 PO (12:59)
[2017-03-24] MEDS ORDERED: FER325 PO (12:59)
--- NOTE | 2017-03-24 13:04 | DS ---
Date/Time of Note Date/Time of Note DATE: 03/24/17 TIME: 12:56 Discharge Summary Admission/Discharge Info Admit Date/Time Mar 20, 2017 at 14:21 Discharge Date/Time March 24, 2017 Discharge Diagnosis 1. Symptomatic anemia-resolved Patient with iron deficiency, DC with p.o. iron EGD shows gastritis, DC with Protonix 2. Pancytopenia-improved Hematology consultation appreciated Patient with iron deficiency Hepatitis panel negative, patient has had B antibody but hep B antigen is negative 3. Hypertension-stable 4. Acute kidney injury secondary dehydration-resolved 5. Morbid obesity. Weight reduction was advised. Hospital Course Patient is a 61-year-old female with only reported past medical history of hypertension who came to [facility] due to reports of subjective fevers as well as generalized weakness that she reports started on Thursday, March 15, 2017. She does not know how high her fever was but reports feeling weak at that time. Patient was noted to be pancytopenic, patient was seen by GI and hematology. Workup was done including EGD which showed no evidence of GI bleed but did show gastritis. Patient was found to be iron deficient of note stool occult blood was negative. Hepatitis panel was negative. Patient also has mild acute kidney injury secondary dehydration which resolved. Patient's pancytopenia did improve the patient was a symptomatically of discharge. Patient will be stable for discharge with plan for outpatient follow-up, on the day of DC patient's vitals, labs and physical exam stable, she had no acute complaints and questions were answered. The patient was advised for lifestyle changes secondary to morbid obesity. Home Meds Active Scripts Pantoprazole* (Protonix*) 40 Mg Tablet., 40 MG PO DAILY for 30 Days, #30 TAB Prov:KIM VASQUEZ 03/24/17 Reported Medications Tolterodine Tartrate* (Detrol*) 2 Mg Tablet, 2 MG PO DAILY, #60 TAB 03/21/17 Metoprolol Succinate* (Toprol XL*) 100 Mg Tab.sr.24h, 100 MG PO DAILY, #30 TAB 03/21/17 Losartan Potassium* (Losartan Potassium*) 100 Mg Tablet, 100 MG PO DAILY, TAB 03/21/17 Hydrochlorothiazide (Hydrochlorothiazide) 25 Mg Tablet, 25 MG PO DAILY, #30 TAB 03/21/17 Aspirin* (Aspirin* EC) 81 Mg Tablet., 81 MG PO DAILY, TAB 03/20/17 Discontinued Reported Medications Ibuprofen* (Ibuprofen*) 800 Mg Tab, 800 MG PO Q6H Y for PAIN, TAB 03/21/17 Follow-up Plan Follow-up with PCP in 1-2 weeks Primary Care Provider Care Physician No Primary Time spent on discharge: > 30 minutes KIM VASQUEZ Mar 24, 2017 13:04
--- NOTE | 2017-03-24 14:43 | PN ---
Date/Time of Note Date/Time of Note DATE: 03/24/17 TIME: 14:38 Assessment/Plan VTE Prophylaxis VTE Prophylaxis Intervention: ambulation Lines/Catheters IV C[facility] Type (from [facility] Peripheral IV Urinary Cath still in place: No Assessment/Plan Assessment/Plan Assessment * Anemia EGD Distal esophagitis. Gastritis, * Hypertension * Obesity Plan * Stable for out patient management * Pantoprazole 40 mg BID X 6 weeks * continue present management * case discussed with Dr Waldron Subjective 24 Hr Interval Summary Free Text/Dictation * course reviewed with RN * Patient seen and examined * EGD 1. Distal esophagitis. Gastritis Gastric biopsy: -- Chronic gastritis, mild to focally moderate, involving antral mucosa. -- No Helicobacter pylori organisms are identified in a Giemsa stain (positive control concurrently reviewed). -- There is no evidence of malignancy. Exam/Review of Systems Vital Signs Vitals Vital Signs Date Time Temp Pulse Resp B/P Pulse Ox O2 Delivery O2 Flow Rate FiO2 03/24/17 08:12 97.8 79 18 130/75 98 03/23/17 17:30 Room Air Intake and Output 03/23/17 03/23/17 03/24/17 15:00 23:00 07:00 Intake Total 110 ml 640 ml 1000 ml Balance 110 ml 640 ml 1000 ml Exam Constitutional: alert, oriented Head: normocephalic Neck: non-tender, supple Respiratory: clear to auscultation, normal air movement Cardiovascular: nl pulses, regular rate and rhythm Gastrointestinal: nl liver, spleen, non-tender Musculoskeletal: nl extremities to inspection, nl gait and stance Extremities: normal pulses Neurological: nl mental status, nl speech, nl strength Skin: nl turgor, No rash or lesions Lymph: nl lymph nodes Results Result Diagram: 03/24/17 0800 03/24/17 0800 Results 24 hrs Laboratory Tests Test 03/24/17 08:00 White Blood Count 3.1 L Red Blood Count 3.38 L Hemoglobin 8.3 L Hematocrit 28.3 L Mean Corpuscular Volume 83.7 Mean Corpuscular Hemoglobin 24.6 L Mean Corpuscular Hemoglobin Concent 29.3 L Red Cell Distribution Width 21.3 H Platelet Count 151 Mean Platelet Volume 11.9 H Neutrophils % 45.9 Lymphocytes % 36.5 Monocytes % 11.7 H Eosinophils % 4.9 Basophils % 0.3 Nucleated Red Blood Cells % 0.0 Neutrophils # 1.4 L Lymphocytes # 1.1 Monocytes # 0.4 Eosinophils # 0.2 Basophils # 0.0 Nucleated Red Blood Cells # 0.0 Sodium Level 144 Potassium Level 3.5 Chloride Level 101 Carbon Dioxide Level 28 Anion Gap 19 H Blood Urea Nitrogen 10 Creatinine 0.61 Glucose Level 109 Calcium Level 8.6 Medications Medications Current Medications Ondansetron HCl (Zofran Inj) 4 mg Q6H PRN IV NAUSEA AND/OR VOMITING; Start at 15:00 Acetaminophen (Tylenol Tab) 650 mg Q6H PRN PO PAIN LEVEL 1-3 OR FEVER; Start at 15:00 Acetaminophen (Tylenol Supp) 650 mg Q6H PRN [place] PAIN LEVEL 1-3 OR FEVER; Start 03/20/17 at 15:00 Acetaminophen/ Hydrocodone Bitart ([place] (5/325)) 1 tab Q6H PRN PO MODERATE PAIN LEVEL 4-6; Start 03/20/17 at 15:00 Acetaminophen/ Hydrocodone Bitart ([place] (5/325)) 2 tab Q6H PRN PO SEVERE PAIN LEVEL 7-10; Start 03/20/17 at 15:00 Morphine Sulfate (morphine) 2 mg Q4H PRN IV SEVERE PAIN LEVEL 7-10; Start 03/20 at 15:00 Docusate Sodium (Colace) 100 mg Q12H PRN PO CONSTIPATION; Start 03/20/17 at 15: 00 Magnesium Hydroxide (Milk Of Mag) 30 ml DAILY PRN PO CONSTIPATION; Start at 15:00 Bisacodyl (Dulcolax Supp) 10 mg DAILY PRN [place] CONSTIPATION; Start 03/20/17 at 15 :00 Pantoprazole (Protonix Iv) 40 mg DAILY@06 IV Last administered on 03/24/17 05: 16; Admin Dose 40 MG; Start 03/21/17 at 06:00 Epoetin Raúl (Epogen (Oncology)) 8,000 units TuThSa@17 SC Last administered on 03/21/17 16:39; Admin Dose 8,000 UNITS; Start 03/21/17 at 17:00 Atorvastatin Calcium (Lipitor) 20 mg HS PO Last administered on 03/23/17 20:13 ; Admin Dose 20 MG; Start 03/22/17 at 21:00 RENÉE QUINTERO NP Mar 24, 2017 14:43
[2017-03-24] MEDS: EPOETIN 4000 UNITS/ML VIAL (ONCOLOGY) SC SCH (17:45)
[2017-03-24 18:12] LABS: ALBUMIN 2.8 g/dL (3.8-4.8)
== END 2017-03-24 18:50 | disposition home or self-care (01) | DRG 809 ==
LOC: FTE 09:30 → MS1 14:21
PROVIDERS: ADMIT Internal Medicine; ATTEND Internal Medicine
PROC: 0DB68ZX Excision of Stomach, Via Natural or Artificial Opening Endoscopic, Diagnostic (ICD-10-PCS; principal; 2017-03-23 17:30)
DX: D61.818 Other pancytopenia (principal); N17.9 Acute kidney failure, unspecified; Z68.43 Body mass index [BMI] 50.0-59.9, adult; E66.01 Morbid (severe) obesity due to excess calories; R16.2 Hepatomegaly with splenomegaly, not elsewhere classified; K20.9 Esophagitis, unspecified; K29.70 Gastritis, unspecified, without bleeding; I10 Essential (primary) hypertension; D50.9 Iron deficiency anemia, unspecified; R77.1 Abnormality of globulin
CPT/HCPCS: 36415; 71010; 74176; 80048; 80053; 80061; 81001; 81003; 81270; 82270; 82575; 82607; 82728; 82746; 82784; 83010; 83036; 83540; 83615; 83690; 83735; 84100; 84155; 84156; 84165; 84436; 84443; 84479; 84560; 85025; 85045; 85335; 85610; 85730; 86320; 86704; 86706; 86803; 87040; 87086; 87340; 88305; 88312; C9113; J0885; J2250; J2916; J3480; J7030